=== PATIENT | female | born 1935 | race Caucasian/White ===

== ENCOUNTER 2018-11-07 14:37 | Inpatient (IN) ==
[2018-11-07] MEDS ORDERED: SODIUM CHLORIDE 0.9% 1000ML 1,000 ML IV ONE (14:50)
[2018-11-07] MEDS ORDERED: KETOROLAC TROMETHAMINE 15 MG/ML VIAL IV STA (14:50)
[2018-11-07] MEDS ORDERED: ONDANSETRON INJ 2 MG/ML 2 ML VIAL IV STA (14:50)
--- NOTE | 2018-11-07 15:01 | Emergency Department Note ---
Entered by Anderson Liao acting as a scribe for History of Present Illness General Chief complaint: Abdominal Pain Stated complaint: abd pain/vomit Time Seen by Provider: 11/07/18 14:45 Source: patient History of Present Illness Provider complaint: Abdominal pain Onset (ago): hour(s) 6 Location: abdomen and left Radiation: non-radiation Pain Consistency: + other (Waxing and waning) Current Pain Intensity: 10 Relieved By: + none Exacerbated By: + none Associated symptoms: + nausea/vomiting The patient is an 83 year old female who presents to the Emergency Room with complaints of waxing and waning left lower quadrant abdominal pain that started about 6 hours ago while traveling home to [place]. The patient states the pain onset was sudden and she rates it as a 10/10 at its worse. She has not taken anything for the pain. Soon after the pain began, the patient vomited 5-6 times and it was an orange color. The patient notes that she feels as though she needs to move her bowels, but she has not done so today. However, yesterday she did move her bowels and it was normal. The patient denies any changes in foods but did state she started her new prescription of Levothyroxine this morning. The patient has never had pain like this before and has no history of bowel obstructions. She does have a history of abdominal surgery, after having a procedure done for her cervical cancer. The patient also has a history of diabetes for which she takes 16 units of insulin and Metformin daily. Home Medications Home Medications Medication Instructions Recorded Confirmed Type ergocalciferol (vitamin D2) 50,000 unit PO WK 11/07/18 11/07/18 History insulin glargine [Lantus Solostar 12 unit SUBCUT HS 11/07/18 11/07/18 History U-100 Insulin] levothyroxine 112 mcg PO QAM 11/07/18 11/07/18 History losartan [Cozaar] 50 mg PO QAM 11/07/18 11/07/18 History metformin [Glucophage] 1,000 mg PO BID 11/07/18 11/07/18 History Allergies Allergy/AdvReac Type Severity Reaction Status Date / Time Penicillins Allergy Severe SWELLING Verified 11/07/18 15:16 Past Med/Surg History Medical History Cervical cancer Diabetes Family History Other Family history non-contributory Social History Feels Safe at Home: Yes Smoking Status: Never smoker Review of Systems See HPI for pertinent positives & negatives. and A total of 10 systems reviewed and were otherwise negative Physical Exam Vital Signs Vital Signs - 24 hr 11/07/18 14:35 11/07/18 14:41 11/07/18 15:10 Temperature 36.3 C L Temperature Source Oral Sepsis Recent Fever Within 48 Hours No Sepsis Action Taken by Nursing No Action Required Pulse Rate 88 80 81 Pulse Rate [Finger] Pulse Rate from SpO2 Sensor Respiratory Rate 20 19 15 Blood Pressure 173/94 H 173/94 H Blood Pressure [Left Arm] Blood Pressure Mean 120 120 Blood Pressure Mean [Left Arm] Pulse Oximetry 97 Oxygen Delivery Method Room Air Nasal Cannula Nasal Cannula Oxygen Flow Rate 3 3 11/07/18 15:20 11/07/18 15:30 11/07/18 15:31 Temperature Temperature Source Sepsis Recent Fever Within 48 Hours Sepsis Action Taken by Nursing Pulse Rate 82 78 81 Pulse Rate [Finger] 78 Pulse Rate from SpO2 Sensor 79 81 Respiratory Rate 13 20 16 Blood Pressure 166/86 H Blood Pressure [Left Arm] 166/86 H Blood Pressure Mean 112 Blood Pressure Mean [Left Arm] 112 Pulse Oximetry 94 Oxygen Delivery Method Nasal Cannula Nasal Cannula Nasal Cannula Oxygen Flow Rate 3 3 3 11/07/18 15:35 11/07/18 15:36 11/07/18 15:40 Temperature Temperature Source Sepsis Recent Fever Within 48 Hours Sepsis Action Taken by Nursing Pulse Rate 83 Pulse Rate [Finger] Pulse Rate from SpO2 Sensor 83 Respiratory Rate 18 Blood Pressure Blood Pressure [Left Arm] Blood Pressure Mean Blood Pressure Mean [Left Arm] Pulse Oximetry 87 L 93 94 Oxygen Delivery Method Room Air Nasal Cannula Nasal Cannula Oxygen Flow Rate 3 3 11/07/18 15:50 11/07/18 16:00 11/07/18 16:01 Temperature Temperature Source Sepsis Recent Fever Within 48 Hours Sepsis Action Taken by Nursing Pulse Rate 83 76 81 Pulse Rate [Finger] Pulse Rate from SpO2 Sensor 86 77 80 Respiratory Rate 15 16 18 Blood Pressure 148/69 H Blood Pressure [Left Arm] Blood Pressure Mean 95 Blood Pressure Mean [Left Arm] Pulse Oximetry 96 97 98 Oxygen Delivery Method Nasal Cannula Nasal Cannula Nasal Cannula Oxygen Flow Rate 3 3 3 11/07/18 16:10 11/07/18 16:30 11/07/18 16:40 Temperature Temperature Source Sepsis Recent Fever Within 48 Hours Sepsis Action Taken by Nursing Pulse Rate 81 132 H 130 H Pulse Rate [Finger] Pulse Rate from SpO2 Sensor 80 132 H 130 H Respiratory Rate 16 22 16 Blood Pressure 176/97 H Blood Pressure [Left Arm] Blood Pressure Mean 123 Blood Pressure Mean [Left Arm] Pulse Oximetry 97 96 95 Oxygen Delivery Method Nasal Cannula Nasal Cannula Oxygen Flow Rate 3 3 11/07/18 16:50 11/07/18 17:00 11/07/18 17:01 Temperature Temperature Source Sepsis Recent Fever Within 48 Hours Sepsis Action Taken by Nursing Pulse Rate 133 H 134 H 128 H Pulse Rate [Finger] Pulse Rate from SpO2 Sensor 130 H 128 H 128 H Respiratory Rate 17 13 15 Blood Pressure 154/79 H Blood Pressure [Left Arm] Blood Pressure Mean 104 Blood Pressure Mean [Left Arm] Pulse Oximetry 96 97 Oxygen Delivery Method Oxygen Flow Rate 11/07/18 17:02 11/07/18 17:10 11/07/18 17:20 Temperature Temperature Source Sepsis Recent Fever Within 48 Hours Sepsis Action Taken by Nursing Pulse Rate 128 H 126 H 125 H Pulse Rate [Finger] Pulse Rate from SpO2 Sensor 128 H 127 H 125 H Respiratory Rate 16 14 16 Blood Pressure Blood Pressure [Left Arm] Blood Pressure Mean Blood Pressure Mean [Left Arm] Pulse Oximetry 96 96 97 Oxygen Delivery Method Nasal Cannula Nasal Cannula Nasal Cannula Oxygen Flow Rate 3 3 3 11/07/18 17:29 11/07/18 17:30 11/07/18 17:31 Temperature Temperature Source Sepsis Recent Fever Within 48 Hours Sepsis Action Taken by Nursing Pulse Rate 125 H 124 H 122 H Pulse Rate [Finger] Pulse Rate from SpO2 Sensor 124 H 122 H Respiratory Rate 15 14 Blood Pressure 154/79 H 151/84 H Blood Pressure [Left Arm] Blood Pressure Mean 106 Blood Pressure Mean [Left Arm] Pulse Oximetry 96 Oxygen Delivery Method Nasal Cannula Nasal Cannula Oxygen Flow Rate 3 3 11/07/18 17:33 11/07/18 17:40 11/07/18 17:50 Temperature Temperature Source Sepsis Recent Fever Within 48 Hours Sepsis Action Taken by Nursing Pulse Rate 118 H 74 Pulse Rate [Finger] 120 H Pulse Rate from SpO2 Sensor 118 H 75 Respiratory Rate 14 18 15 Blood Pressure Blood Pressure [Left Arm] 151/84 H Blood Pressure Mean Blood Pressure Mean [Left Arm] 106 Pulse Oximetry 96 95 95 Oxygen Delivery Method Nasal Cannula Nasal Cannula Nasal Cannula Oxygen Flow Rate 3 3 3 11/07/18 18:00 11/07/18 18:01 11/07/18 18:10 Temperature Temperature Source Sepsis Recent Fever Within 48 Hours Sepsis Action Taken by Nursing Pulse Rate 73 77 74 Pulse Rate [Finger] 80 Pulse Rate from SpO2 Sensor 74 76 74 Respiratory Rate 16 17 15 Blood Pressure 135/70 Blood Pressure [Left Arm] 135/70 Blood Pressure Mean 91 Blood Pressure Mean [Left Arm] 91 Pulse Oximetry 97 96 96 Oxygen Delivery Method Nasal Cannula Nasal Cannula Nasal Cannula Oxygen Flow Rate 3 3 3 11/07/18 18:20 11/07/18 18:30 11/07/18 18:31 Temperature Temperature Source Sepsis Recent Fever Within 48 Hours Sepsis Action Taken by Nursing Pulse Rate 76 73 73 Pulse Rate [Finger] Pulse Rate from SpO2 Sensor 76 73 74 Respiratory Rate 13 20 17 Blood Pressure 131/81 Blood Pressure [Left Arm] Blood Pressure Mean 97 Blood Pressure Mean [Left Arm] Pulse Oximetry 96 96 Oxygen Delivery Method Nasal Cannula Nasal Cannula Nasal Cannula Oxygen Flow Rate 3 3 3 11/07/18 18:40 11/07/18 18:50 11/07/18 19:28 Temperature Temperature Source Sepsis Recent Fever Within 48 Hours Sepsis Action Taken by Nursing Pulse Rate 72 79 71 Pulse Rate [Finger] Pulse Rate from SpO2 Sensor 72 80 Respiratory Rate 19 13 15 Blood Pressure 142/75 H Blood Pressure [Left Arm] Blood Pressure Mean Blood Pressure Mean [Left Arm] Pulse Oximetry 97 98 97 Oxygen Delivery Method Nasal Cannula Nasal Cannula Nasal Cannula Oxygen Flow Rate 3 3 3 GENERAL: Patient is in no acute distress. HEENT: No acute trauma, normocephalic atraumatic, mucous membranes moist, no nasal congestion, no scleral icterus. NECK: No stridor, no adenopathy, no meningismus, trachea is midline. LUNGS: Clear to auscultation bilaterally, no wheeze, no rhonchi, breath sounds e qual. HEART: Without murmurs gallops or rubs, regular rate and rhythm. ABDOMEN: Soft, moderately tender in the LLQ and left mid abdomen, bowel sounds positive, no hernias, no peritonitis. EXTREMITIES: No cyanosis or edema, full range of motion of all the joints without pain or difficulty, no signs for acute trauma. NEUROLOGIC: Oriented x 3, no acute motor or sensory deficits, no focal weakness. SKIN: No rash, no jaundice, no diaphoresis. Course 1447: The patient was evaluated in room B07, and a complete history and physical examination were performed. 1723: I reevaluated the patient and she is resting in bed. I also updated her on results. 1800: I updated the patient on results and we discussed the treatment plan. She agreed to stay. 1805: I spoke to Dr. Mellisa Brewer [facility] Hospitalist about the patient's case and he will be accepting her for further evaluation. Consultations Consultation #1: I spoke to Dr. Mellisa Brewer [facility] Hospitalist about the patient's case and he will be accepting her for further evaluation. Time: 18:05 Administered Medications Ioversol (Optiray 320 100ml) 94 ml IV ONCE PRN PRN Reason: Interaction Checking Stop: 11/11/18 16:18 Last Admin: 11/07/18 16:20 Dose: 94 ml Documented by: [id number] Morphine Sulfate (Morphine Sulfate) 2 mg IV Q15M PRN PRN Reason: Pain Stop: 11/21/18 14:49 Last Admin: 11/07/18 16:33 Dose: 2 mg Documented by: [id number] Admin: 11/07/18 15:25 Dose: 2 mg Documented by: [id number] Discontinued Medications Sodium Chloride (Nss 1000ml) 1,000 mls @ 999 mls/hr IV .Q1H1M ONE Stop: 11/07/18 15:50 Last Infusion: 11/07/18 16:45 Dose: 0 mls/hr Documented by: [id number] Admin: 11/07/18 15:26 Dose: 999 mls/hr Documented by: [id number] Magnesium Sulfate/Dextrose (Magnesium Sulfate / D5w) 1 gm in 100 mls @ 100 mls/hr IV Q1H ROHIT Stop: 11/07/18 17:59 Last Infusion: 11/07/18 17:33 Dose: 0 mls/hr Documented by: [id number] Admin: 11/07/18 17:33 Dose: 100 mls/hr Documented by: [id number] Infusion: 11/07/18 17:29 Dose: 100 mls/hr Documented by: [id number] Admin: 11/07/18 16:29 Dose: 100 mls/hr Documented by: [id number] Ketorolac Tromethamine (Toradol) 15 mg IV NOW STA Stop: 11/07/18 14:51 Last Admin: 11/07/18 15:26 Dose: 15 mg Documented by: [id number] Metoprolol Tartrate (Lopressor) 5 mg IV NOW STA Stop: 11/07/18 17:23 Last Admin: 11/07/18 17:29 Dose: 5 mg Documented by: [id number] Ondansetron HCl (Zofran) 4 mg IV NOW STA Stop: 11/07/18 14:51 Last Admin: 11/07/18 15:26 Dose: 4 mg Documented by: [id number] Medical Decision Making Differential Diagnosis Differential Diagnosis includes: Bowel obstruction, bowel perfusion, bowel ischemia, hernia, diverticulitis, colitis, pancreatitis, appendicitis, UTI, electrolyte abnormality, and dehydration, amongst others. Medical Records Attestation: I reviewed the patient's medical records. Home Medications Current Medication List: was personally reviewed by me Laboratory Data Attestation: I reviewed the patient's lab results. Result diagrams: 11/07/18 15:11 11/07/18 15:11 Lab Results 11/07/18 11/07/18 11/07/18 Range/Units 14:50 15:11 15:11 WBC 10.82 H (4.8-10.8) K/uL RBC 4.67 (4.2-5.4) M/uL Hgb 13.5 (12.0-16.0) g/dL Hct 39.2 (37-47) % MCV 83.9 (80-100) fL MCH 28.9 (25-34) pg MCHC 34.4 (32-36) g/dL RDW Std Deviation 39.0 (36.4-46.3) fL RDW Coeff of Jennifer 12.9 (11.5-14.5) % Plt Count 227 (130-400) K/uL MPV 9.5 (7.4-10.4) fL Immature Gran % (Auto) 0.1 % Neut % (Auto) 82.5 % Lymph % (Auto) 14.6 % Luna % (Auto) 2.4 % Eos % (Auto) 0.2 % Baso % (Auto) 0.2 % Immature Gran # (Auto) 0.01 (0.00-0.02) K/uL Neut # (Auto) 8.93 H (1.4-6.5) K/uL Lymph # (Auto) 1.58 (1.2-3.4) K/uL Luna # (Auto) 0.26 (0.11-0.59) K/uL Eos # (Auto) 0.02 (0-0.5) K/uL Baso # (Auto) 0.02 (0-0.2) K/uL Sodium 139 (136-145) mmol/L Potassium 4.5 (3.5-5.1) mmol/L Chloride 105 (98-107) mmol/L Carbon Dioxide 27 (21-32) mmol/L Anion Gap 7.0 (3-11) BUN 18 (7-18) mg/dl Creatinine 1.38 H (0.6-1.2) mg/dl Est Cr Clr Drug Dosing Not Reportable Est GFR ( Amer) 40.9 Est GFR (Non-Af Amer) 35.3 BUN/Creatinine Ratio 12.8 (10-20) Glucose 169 H (70-99) mg/dl Lactate (0.4-2.0) mmol/L Calcium 9.2 (8.5-10.1) mg/dl Magnesium 1.1 L (1.8-2.4) mg/dl Total Bilirubin 0.7 (0.2-1) mg/dl AST 15 (15-37) U/L ALT 15 (12-78) U/L Alkaline Phosphatase 85 (45-117) U/L Total Protein 7.7 (6.4-8.2) gm/dl Albumin 3.9 (3.4-5.0) gm/dl Globulin 3.8 (2.5-4.0) gm/dl Albumin/Globulin Ratio 1.0 (0.9-2) Lipase 83 (73-393) U/L Urine Color Yellow Urine Appearance Clear (Clear) Urine pH 5.0 (4.5-7.5) Ur Specific [place] 1.026 (1.000-1.030) Urine Protein 3+ H (Negative) Urine Glucose (UA) Negative (Negative) Urine Ketones 2+ H (Negative) Urine Blood 2+ H (Negative) Urine Nitrite Negative (Negative) Urine Bilirubin Negative (Negative) Urine Urobilinogen Negative (Negative) Ur Leukocyte Esterase Negative (Negative) Urine WBC (Auto) 5-10 H (0-5) /hpf Urine RBC (Auto) 10-30 H (0-4) /hpf U Hyaline Cast (Auto) 1-5 (0-5) /lpf U Epithel Cells (Auto) >30 H (0-5) /lpf Urine Bacteria (Auto) 1+ H (Negative) Ur Renal Epithelial Cell 0-5 (0-5) /lpf 11/07/18 Range/Units 15:11 WBC (4.8-10.8) K/uL RBC (4.2-5.4) M/uL Hgb (12.0-16.0) g/dL Hct (37-47) % MCV (80-100) fL MCH (25-34) pg MCHC (32-36) g/dL RDW Std Deviation (36.4-46.3) fL RDW Coeff of Jennifer (11.5-14.5) % Plt Count (130-400) K/uL MPV (7.4-10.4) fL Immature Gran % (Auto) % Neut % (Auto) % Lymph % (Auto) % Luna % (Auto) % Eos % (Auto) % Baso % (Auto) % Immature Gran # (Auto) (0.00-0.02) K/uL Neut # (Auto) (1.4-6.5) K/uL Lymph # (Auto) (1.2-3.4) K/uL Luna # (Auto) (0.11-0.59) K/uL Eos # (Auto) (0-0.5) K/uL Baso # (Auto) (0-0.2) K/uL Sodium (136-145) mmol/L Potassium (3.5-5.1) mmol/L Chloride (98-107) mmol/L Carbon Dioxide (21-32) mmol/L Anion Gap (3-11) BUN (7-18) mg/dl Creatinine (0.6-1.2) mg/dl Est Cr Clr Drug Dosing Est GFR ( Amer) Est GFR (Non-Af Amer) BUN/Creatinine Ratio (10-20) Glucose (70-99) mg/dl Lactate 3.1 H* (0.4-2.0) mmol/L Calcium (8.5-10.1) mg/dl Magnesium (1.8-2.4) mg/dl Total Bilirubin (0.2-1) mg/dl AST (15-37) U/L ALT (12-78) U/L Alkaline Phosphatase (45-117) U/L Total Protein (6.4-8.2) gm/dl Albumin (3.4-5.0) gm/dl Globulin (2.5-4.0) gm/dl Albumin/Globulin Ratio (0.9-2) Lipase (73-393) U/L Urine Color Urine Appearance (Clear) Urine pH (4.5-7.5) Ur Specific [place] (1.000-1.030) Urine Protein (Negative) Urine Glucose (UA) (Negative) Urine Ketones (Negative) Urine Blood (Negative) Urine Nitrite (Negative) Urine Bilirubin (Negative) Urine Urobilinogen (Negative) Ur Leukocyte Esterase (Negative) Urine WBC (Auto) (0-5) /hpf Urine RBC (Auto) (0-4) /hpf U Hyaline Cast (Auto) (0-5) /lpf U Epithel Cells (Auto) (0-5) /lpf Urine Bacteria (Auto) (Negative) Ur Renal Epithelial Cell (0-5) /lpf Imaging Data Radiologist's Impression: Radiology results as stated below per my review and the radiologist's interpretation: XR chest 1V portable CLINICAL HISTORY: Left-sided abdominal pain. Possible free air. COMPARISON STUDY: No previous studies for comparison. FINDINGS: Linear left basilar opacity suggests atelectasis or scarring. There is no evidence for pneumonia or pulmonary edema. Cardiac size is normal. Mediastinal contours are normal. There is no lucency under the hemidiaphragms to suggest pneumoperitoneum. IMPRESSION: 1. No lucency under the hemidiaphragms to suggest pneumoperitoneum on chest radiograph. 2. Linear left basilar opacity suggestive of atelectasis. Electronically signed by: Luis Ku M.D. 11/07/2018 3:[address] OF THE ABDOMEN AND PELVIS WITH CONTRAST CLINICAL HISTORY: Left lower quadrant abdominal pain and vomiting. COMPARISON STUDY: None. TECHNIQUE: Following IV administration of 94 mL of Optiray-320, axial images of the abdomen and pelvis were obtained from the lung bases to the proximal femurs. Images were reviewed in the axial, sagittal, and coronal planes. IV contrast was administered without complication. Automated exposure control was utilized for the study. A dose lowering technique was utilized adhering to the principles of ALARA. CT DOSE: 644.98 mGy.cm FINDINGS: A 4 mm distal left ureteral calculus just proximal to the ureterovesical junction results in mild left hydroureteronephrosis. There is mild left perinephric infiltration. There is moderate left renal atrophy. A cyst within the upper pole of the left kidney is noted. There may be a punctate calculus within the upper pole of the right kidney. There are no right ureteral clip within a gallstone within the gallbladder. The gallbladder is mildly distended. There is no pericholecystic infiltration. A lateral segment hepatic cyst is noted. The spleen and adrenal glands are unremarkable. There is marked pancreatic glandular atrophy. Multiple cystic lesions within the pancreas are noted, including a 2.4 cm lesion within the uncinate process. There is no biliary or pancreatic ductal dilatation. The appendix is normal. There is no evidence for a bowel obstruction. Colonic diverticulosis is noted without evidence for acute diverticulitis. There are no suspicious osseous lesions. IMPRESSION: 1. 4 mm distal left ureteral calculus which results in mild left hydroureteronephrosis. 2. Cholelithiasis and mild gallbladder distention. No pericholecystic infiltration to strongly suggest acute cholecystitis. 3. 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 Electronically signed by: Luis Ku M.D. 11/07/2018 5:30 PM ECG Data Attestation: I personally reviewed and interpreted this ECG as follows: Indication: abdominal pain Rate (beats per minute): 83 Rhythm: normal sinus Findings: no PVC and no ST elevation Additional Comments: REPEAT 1: Sinus tachycardia vs atrial tachycardia, rate of 127, non specific ST changes, no ST elevation, no PVC REPEAT 2: Normal sinus rhythm, rate of 73, no ST elevation, no PVC Blood Pressure Blood Pressure Findings: Elevated blood pressure Blood Pressure Disposition: further management by hospitalist [facility] Narrative There is a very mild leukocytosis, this could be consistent with infection or just her pain. No worrisome anemia. No kidney failure. Lactic acid level was elevated at 3.1, this could be consistent with dehydration or possibly infection , I favor dehydration. Magnesium was low at 1.1. No elevation to the LFTs, no evidence for pancreatitis. Urinalysis showed contamination, no obvious infection. EKG showed a sinus rhythm, no acute ischemia. A repeat EKG was done when the patient developed tachycardia, this showed some nonspecific ST change and a possible sinus tachycardia versus a slower 2-1 atrial flutter. A third EKG done sometime later showed return of a normal sinus rhythm. Abdominal and pelvis CT shows a left distal ureteral stone with some hydronephrosis. There is a gallstone noted also but no evidence for acute c holecystitis. No evidence for bowel obstruction, no evidence for abscess. The patient received IV saline, she was given IV morphine for pain, IV Toradol for pain. She received IV magnesium for the low magnesium value. She received 1 L of IV saline. She required a 5 mg dose of IV Lopressor for the tachycardia. The patient as noted above did develop a bout of tachycardia, the tachycardia started when the IV magnesium was infusing. The magnesium was held for a short time and with the addition of 5 mg of IV Lopressor, the tachycardia resolved and the rhythm became a normal sinus. Patient is from out of town, she presents vomiting, she has quite a bit of discomfort from this left ureteral stone. Had a bout of tachycardia/dysrhythmia that required Lopressor IV. I do think a hospital stay is warranted. I spoke to the patient and family service caseworker. The on-call hospitalist was consulted. Impression & Plan Renal colic, Hypomagnesemia, Vomiting, Tachycardia Discharge Plan Visit Data Chief Complaint: Abdominal Pain Stated Complaint: abd pain/vomit ED Provider: Josue Garcia Discharge Problem: Renal colic, Hypomagnesemia, Vomiting, Tachycardia Patient Disposition: Being Evaluated by Hospitalist Discharge Instructions Interventions: ED Discharge Assessment Last Done: 11/07/18 19:28 Forms Stand Alone Forms: [facility] Prescriptions Prescriptions: No Action losartan [Cozaar] 50 mg tablet 50 mg PO QAM RF: 0 metformin [Glucophage] 1,000 mg tablet 1,000 mg PO BID RF: 0 ergocalciferol (vitamin D2) 50,000 unit capsule 50,000 unit PO WK RF: 0 levothyroxine 112 mcg tablet 112 mcg PO QAM RF: 0 Lantus Solostar U-100 Insulin 100 unit/mL (3 mL) insulin pen 12 unit subcut HS RF: 0 Referrals Referrals: PCP,NO [Primary Care Provider] - Discharge Problem: Vomiting Qualifiers: Vomiting type: unspecified Vomiting Intractability: non-intractable Nausea presence: with nausea Qualified Code(s): R11.2 - Nausea with vomiting, unspecified The scribe's documentation has been prepared under my direction and personally reviewed by me in its entirety. I confirm that the note above accurately reflects all work, treatment, procedures, and medical decision making performed by me.
[2018-11-07 15:14] LABS: Appearance Urine Clear (Clear); Bacteria Urine Automated 1+ (Negative); Bilirubin Urine Negative (Negative); Blood Urine 2+ (Negative); Color Urine Yellow; Epithelial Cell Urine Auto >30 /lpf (0-5); Glucose Urine UA Negative (Negative); Ketones Urine 2+ (Negative); Leukocyte Esterase Urine Negative (Negative); Nitrite Urine Negative (Negative); Protein Urine 3+ (Negative); Specific Gravity Urine 1.026 (1.000-1.030); Urobilinogen Urine Negative (Negative)
--- NOTE | 2018-11-07 15:17 | XRay Report ---
XR chest 1V portable CLINICAL HISTORY: Left-sided abdominal pain. Possible free air. COMPARISON STUDY: No previous studies for comparison. FINDINGS: Linear left basilar opacity suggests atelectasis or scarring. There is no evidence for pneu monia or pulmonary edema. Cardiac size is normal. Mediastinal contours are normal. There is no lucenc y under the hemidiaphragms to suggest pneumoperitoneum. IMPRESSION: 1. No lucency under the hemidiaphragms to suggest pneumoperitoneum on chest radiograph. 2. Linear left basilar opacity suggestive of atelectasis. Electronically signed by: Luis Ku M.D. 11/07/2018 3:15 PM
[2018-11-07 15:24] LABS: Basophils # (auto) 0.02 K/uL (0-0.2); Basophils % (auto) 0.2 %; Eosinophils # (auto) 0.02 K/uL (0-0.5); Eosinophils % (auto) 0.2 %; Hematocrit (blood only) 39.2 % (37-47); Hemoglobin 13.5 g/dL (12.0-16.0); Immature Granulocytes # (auto) 0.01 K/uL (0.00-0.02); Immature Granulocytes % (auto) 0.1 %; Lymphocytes # (auto) 1.58 K/uL (1.2-3.4); Lymphocytes % (auto) 14.6 %; Mean Corpuscular Hgb Conc 34.4 g/dL (32-36); Mean Corpuscular Volume 83.9 fL (80-100); Mean Platelet Volume 9.5 fL (7.4-10.4); Monocytes # (auto) 0.26 K/uL (0.11-0.59); Monocytes % (auto) 2.4 %; Neutrophils # (auto) 8.93 K/uL (1.4-6.5); Neutrophils % (auto) 82.5 %; Platelet Count 227 K/uL (130-400); RDW Coefficient of Variation 12.9 % (11.5-14.5); Red Blood Count 4.67 M/uL (4.2-5.4); White Blood Count 10.82 K/uL (4.8-10.8)
[2018-11-07] MEDS: MoRPHine SULFATE 4 MG/ML 1 ML CARP\\VIAL IV PRN ×2 (15:25→16:33)
[2018-11-07 15:42] LABS: Alanine Aminotransferase 15 U/L (12-78); Albumin Level 3.9 gm/dl (3.4-5.0); Aspartate Aminotransferase 15 U/L (15-37); BUN Creatinine Ratio 12.8 (10-20); Blood Urea Nitrogen 18 mg/dl (7-18); Calcium 9.2 mg/dl (8.5-10.1); Carbon Dioxide 27 mmol/L (21-32); Chloride 105 mmol/L (98-107); Est GFR (African American) 40.9; Est GFR (Non-African American) 35.3; Glucose 169 mg/dl (70-99); Magnesium 1.1 mg/dl (1.8-2.4); Potassium 4.5 mmol/L (3.5-5.1); Sodium 139 mmol/L (136-145)
[2018-11-07 15:44] LABS: Alkaline Phosphatase 85 U/L (45-117); Bilirubin,Total 0.7 mg/dl (0.2-1); Globulin 3.8 gm/dl (2.5-4.0); Total Protein 7.7 gm/dl (6.4-8.2)
[2018-11-07 15:58] LABS: Renal Epithelial Cells Urine 0-5 /lpf (0-5)
[2018-11-07] MEDS ORDERED: IOVERSOL 100ml IV PRN (16:19)
[2018-11-07] MEDS: MAGNESIUM SULFATE / D5W 1 GM/100 ML BAG IV SCH ×2 (16:29→17:33)
[2018-11-07] MEDS ORDERED: METOPROLOL TARTRATE 1 MG/ML VIAL IV STA (17:22)
--- NOTE | 2018-11-07 17:31 | CT Scan Report ---
CT OF THE ABDOMEN AND PELVIS WITH CONTRAST CLINICAL HISTORY: Left lower quadrant abdominal pain and vomiting. COMPARISON STUDY: None. TECHNIQUE: Following IV administration of 94 mL of Optiray-320, axial images of the abdomen and pelvi s were obtained from the lung bases to the proximal femurs. Images were reviewed in the axial, sagitt al, and coronal planes. IV contrast was administered without complication. Automated exposure contro l was utilized for the study. A dose lowering technique was utilized adhering to the principles of A AMY. CT DOSE: 644.98 mGy.cm FINDINGS: A 4 mm distal left ureteral calculus just proximal to the ureterovesical junction results i n mild left hydroureteronephrosis. There is mild left perinephric infiltration. There is moderate lef t renal atrophy. A cyst within the upper pole of the left kidney is noted. There may be a punctate ca lculus within the upper pole of the right kidney. There are no right ureteral clip within a gallstone within the gallbladder. The gallbladder is mildly distended. There is no pericholecystic infiltratio n. A lateral segment hepatic cyst is noted. The spleen and adrenal glands are unremarkable. There is marked pancreatic glandular atrophy. Multiple cystic lesions within the pancreas are noted, including a 2.4 cm lesion within the uncinate process. There is no biliary or pancreatic ductal dilatation. Th e appendix is normal. There is no evidence for a bowel obstruction. Colonic diverticulosis is noted w ithout evidence for acute diverticulitis. There are no suspicious osseous lesions. IMPRESSION: 1. 4 mm distal left ureteral calculus which results in mild left hydroureteronephrosis. 2. Cholelithiasis and mild gallbladder distention. No pericholecystic infiltration to strongly sugges t acute cholecystitis. 3. 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 Electronically signed by: Luis Ku M.D. 11/07/2018 5:30 PM
--- NOTE | 2018-11-07 18:42 | History & Physical Report ---
Date of Service November 07, 2018 Assessment & Plan (1) Kidney stone: Admit to telemetry due to tachycardia in ED CT showed 4 mm left ureter calculus with mild hydronephrosis Lactic acid was 3.0, likely due to dehydration as she does not appear to be septic - IVF, morphine 2 mg IV q4h prn UC pending Flomax Consult urology (2) Hypomagnesemia: 1.1 on admission, given 1 in ED, will give another and recheck level in am. May have contributed to SVT in ED. Patient reports she has not had much of an appetite (3) Tachycardia: Brief PAT with heart rate 120s -130s which returned to normal EKG with metoprolol IV. Troponins x 3 telemetry monitoring (4) IPMN (intraductal papillary mucinous neoplasm): Reviewed finding with patient - follow up outpatient (5) Cholelithiasis: Seen on CT No RUQ pain, LFTs wnl May want to pursue if nausea does not resolve with nephrolithiasis removal LFTs am (6) DVT prophylaxis: SCDs History of Present Illness Ms. Coe is visiting from [place] to bring her grandson to a [employer]. She became nauseas with vomiting around 0830 this morning. She also had pain in her left lower quadrant. She denies any diarrhea or dysuria. She also developed SVT briefly in the ED for which she was given IV metoprolol and has not experienced since. She has not had any chest pain or other cardiac symptoms. 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 hx: diabetes Primary Care Provider: NO PCP Allergies Allergy/AdvReac Type Severity Reaction Status Date / Time Penicillins Allergy Severe SWELLING Verified 11/07/18 15:16 Home Medications Home Medications Medication Instructions Recorded Confirmed Type ergocalciferol (vitamin D2) 50,000 unit PO WK 11/07/18 11/07/18 History insulin glargine [Lantus Solostar 12 unit SUBCUT HS 11/07/18 11/07/18 History U-100 Insulin] levothyroxine 112 mcg PO QAM 11/07/18 11/07/18 History losartan [Cozaar] 50 mg PO QAM 11/07/18 11/07/18 History metformin [Glucophage] 1,000 mg PO BID 11/07/18 11/07/18 History Past Med/Surg History Medical History Cervical cancer Diabetes Family History Other Family history non-contributory Social History Feels Safe at Home: Yes Smoking Status: Never smoker Review of Systems Review of Systems: All systems reviewed & are unremarkable except as noted in HPI & below Physical Exam Physical Exam: General: no distress Eyes: normal inspection, PERLL Respiratory: chest non tender, clear to auscultation, normal breath sounds, no respiratory distress, no accessory muscle use Cardiac: regular rate and rhythm, no rub or gallop, no murmur, no edema, no jvd GI/: active bowel sounds, no abd pain or tenderness, soft, non distended Extremities: normal range of motion, normal strength, non tender Neuro:oriented x 3, moves all extremities Psych: alert, normal mood and affect Skin: normal color, dry Results & Data Vital Signs (Past 12 Hours) Vital Signs Temp Pulse Pulse Resp BP BP Pulse Ox 11/07/18 18:00 80 22 135/70 97 11/07/18 17:33 120 H 14 151/84 H 96 11/07/18 17:29 125 H 154/79 H 11/07/18 17:01 128 H 15 154/79 H 97 11/07/18 17:00 134 H 13 11/07/18 16:50 133 H 17 96 11/07/18 16:40 130 H 16 95 11/07/18 16:30 132 H 22 176/97 H 96 11/07/18 16:10 81 16 97 11/07/18 16:01 81 18 148/69 H 98 11/07/18 16:00 76 16 97 11/07/18 15:50 83 15 96 11/07/18 15:40 83 18 94 11/07/18 15:36 93 11/07/18 15:35 87 L 11/07/18 15:31 81 16 166/86 H 11/07/18 15:30 78 78 20 166/86 H 94 11/07/18 15:20 82 13 11/07/18 15:10 81 15 11/07/18 14:41 80 19 173/94 H 11/07/18 14:35 36.3 C L 88 20 173/94 H 97 Supervising Physician Co-Signing Physician Notes The patient was seen and examined by me. I agree with the assessment and plan. She has a 4 mm distal left ureteral stone which probably will pass. She had a short run of PAT in the ED which was probably due to abdominal pain and low magnesium levels. She was given 1 dose of intravenous metoprolol and it resolved. Follow-up EKG is unremarkable. Serial troponins will be obtained. She has no previous cardiac history and denies any chest pain or shortness of breath. Magnesium replacement underway. Lactic acid is elevated but she is not septic. Lungs are clear. Heart rhythm is regular at this time. Abdomen benign, soft with active bowel sounds and no focal tenderness. Extremities exhibit no cyanosis, clubbing or edema. Neurologically grossly intact. PG Care Time/CCT Total # of Minutes Spent Total Time Spent with Patient: Total time spent is greater than 50% in coordination of care (as documented) at patient's floor/unit and/or counseling patient:
[2018-11-07] MEDS ORDERED: POLYETHYLENE (MIRALAX) 17 GM PACK PO PRN (19:58)
[2018-11-07] MEDS ORDERED: ACETAMINOPHEN 325 MG TAB PO PRN (19:58)
[2018-11-07] MEDS ORDERED: ONDANSETRON INJ 2 MG/ML 2 ML VIAL IV PRN (19:58)
[2018-11-07] MEDS ORDERED: MoRPHine SULFATE 2 MG/ML CARP IV PRN (19:58)
[2018-11-07] MEDS ORDERED: METOPROLOL TARTRATE 1 MG/ML VIAL IV PRN (19:58)
[2018-11-07 20:26] LABS: Troponin I < 0.015 ng/ml (0-0.045)
[2018-11-07] MEDS: SODIUM CHLORIDE 0.9% 1000ML 1,000 ML IV SCH (20:28)
[2018-11-07] MEDS ORDERED: MAGNESIUM SULFATE / D5W 1 GM/100 ML BAG IV ONE (20:30)
[2018-11-07] MEDS ORDERED: INSULIN ASPART 100 UNITS/ML 3 ML PEN SC SCH (21:00)
[2018-11-07] MEDS ORDERED: TAMSULOSIN HCL 0.4 MG CAP PO SCH (21:00)
[2018-11-07] MEDS: INSULIN GLARGINE SOLOSTAR 100 UNITS/ML 3 ML PEN SQ SCH (21:32)
[2018-11-08 02:02] LABS: Hematocrit (blood only) 34.5 % (37-47); Hemoglobin 11.7 g/dL (12.0-16.0); Mean Corpuscular Hgb Conc 33.9 g/dL (32-36); Mean Corpuscular Volume 85.8 fL (80-100); Mean Platelet Volume 9.2 fL (7.4-10.4); Platelet Count 204 K/uL (130-400); RDW Standard Deviation 40.5 fL (36.4-46.3); Red Blood Count 4.02 M/uL (4.2-5.4)
[2018-11-08 02:24] LABS: BUN Creatinine Ratio 12.8 (10-20); Bilirubin Direct 0.2 mg/dl (0-0.2); Calcium 7.9 mg/dl (8.5-10.1); Creatinine Clr Calc Pharmacy 29.5 ml/min; Est GFR (African American) 36.1; Est GFR (Non-African American) 31.1; Magnesium 1.9 mg/dl (1.8-2.4); Potassium 4.3 mmol/L (3.5-5.1)
[2018-11-08 02:44] LABS: Bilirubin,Total 0.6 mg/dl (0.2-1); Total Protein 6.2 gm/dl (6.4-8.2); Troponin I 0.064 ng/ml (0-0.045)
[2018-11-08] MEDS: SODIUM CHLORIDE 0.9% 1000ML 1,000 ML IV SCH ×2 (05:57→16:55)
[2018-11-08] MEDS: INSULIN ASPART 100 UNITS/ML 3 ML PEN SC SCH ×5 (05:57→20:45)
[2018-11-08] MEDS: LEVOTHYROXINE SODIUM 112 MCG TABLET PO SCH (07:21)
[2018-11-08] MEDS ORDERED: SODIUM CHLORIDE 0.9% 1000ML 500 ML IV ONE (08:45)
[2018-11-08] MEDS ORDERED: LOSARTAN POTASSIUM 50 MG TAB PO SCH (09:00)
--- NOTE | 2018-11-08 09:05 | Urology Consultation ---
Date of Consultation November 08, 2018 Assessment & Plan (1) Kidney stone: Assessment Small left ureteral stone. Given patient's lack of symptoms currently I think she is probably passed her stone Since she has had no fevers or chills and now was not having any flank pain nausea or vomiting nothing else needs to be done at this time From a urologic point of view she is stable for discharge I would send her home on some pain medication History of Present Illness Attending Physician: Skylar Stout MD History of Present Illness 83-year-old white female who was seen in the emergency room with left abdominal pain nausea and vomiting. She had a CT scan done showing a 2.5 mm left ureterovesical junction stone. She tells me that as soon as she got to her room the pain disappeared the nausea resolved. She is had no pain or nausea since last night. She is had no fevers or chills. Allergies Allergy/AdvReac Type Severity Reaction Status Date / Time Penicillins Allergy Severe SWELLING Verified 11/07/18 15:16 aspartame AdvReac Unknown Unknown Verified 11/08/18 08:56 Home Medications Home Medications Medication Instructions Recorded Confirmed Type ergocalciferol (vitamin D2) 50,000 unit PO WK 11/07/18 11/07/18 History insulin glargine [Lantus Solostar 12 unit SUBCUT HS 11/07/18 11/07/18 History U-100 Insulin] levothyroxine 112 mcg PO QAM 11/07/18 11/07/18 History losartan [Cozaar] 50 mg PO QAM 11/07/18 11/07/18 History metformin [Glucophage] 1,000 mg PO BID 11/07/18 11/07/18 History Patient History Medical History Cervical cancer Diabetes Family History Other Family history non-contributory Social History Preferred Language: [place] Islander Communication Ability: Effective 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 Beliefs That Will Affect Care: None Current Living Situation: Alone Other Information That Helps Us Care for You: No Feels Safe at Home: Yes Safety Concerns: Feels Safe At This Time Smoking Status: Never smoker Tobacco Cessation Education Requested by Patient: No Hx Alcohol Use: No Hx Substance Use: No Physical Exam Physical Exam: Patient is a well-developed well-nourished white female in no acute distress Neurologically she is alert and oriented x3 Abdomen soft nontender Back there is no flank pain Extremities no calf pain or edema Results & Data Vital Signs (Past 12 Hours) Vital Signs Temp Pulse Resp BP Pulse Ox 11/08/18 08:05 36.7 C 64 22 88/58 L 92 11/08/18 03:10 36.8 C 66 18 102/59 L 92 11/07/18 23:46 36.4 C L 64 17 105/66 94 Diagnostic Findings I reviewed the patient's CT from last night there is a 2.5 mm left ureterovesical junction stone
--- NOTE | 2018-11-08 11:01 | Cardiology Consultation ---
Date of Consultation November 08, 2018 Assessment & Plan (1) Elevated troponin: Mildly elevated troponin likely secondary to demand ischemia. The patient was tachycardic on presentation and has left ventricle hypertrophy on her echocardiogram. She has had absolutely no cardiac symptoms. No further workup indicated at this time. (2) Tachycardia: Initial EKG noted a sinus tachycardia. The medical record explains an SVT which converted to sinus rhythm with intravenous metoprolol. Hypomagnesemia at time of presentation is noted. (3) LVH (left ventricular hypertrophy): Mild LVH on her echocardiogram performed today. (4) Mitral regurgitation: At least mild mitral regurgitation noted on her echocardiogram. History of Present Illness Attending Physician: Skylar Stout MD History of Present Illness Mrs. Coe is an 83-year-old female admitted yesterday with a left ureteral stone. She had a mildly elevated troponin, therefore, this consultation was ordered. The patient was in her usual state of health until approximately 8:00 a.m. yesterday when she began to note some left lower quadrant pain. The patient was traveling from her home in [facility] to [facility] to drop her grandson off at a wrestling camp. Her discomfort continued to intensify and by 1:00 p.m., she developed nausea and vomiting and had to lay down in the grass. She was found by police surgeon who called 911. On arrival to the emergency room, the patient was tachycardic (rhythm strips are not available for review). The medical records suggest the patient was in an SVT and received 5 mg of intravenous Lopressor and converted back to sinus rhythm. Her initial troponin was undetectable, however, follow-up value peaked at 0.064. The patient has never had a cardiac event. She has never experienced exertional chest pain or limiting dyspnea. She further denies syncope, presyncope, PND, orthopnea, palpitations, lower extremity edema, and claudication. She has never had a cardiac catheterization or stress test. Fortunately, the patient was able to passed her stone. The patient feels well and is anxious for hospital discharge. Past medical and surgical history 1. Diabetes mellitus 2. Hypothyroidism 3. Nephrolithiasis 4. Mild LVH 5. Cholelithiasis 6. Intraductal papillary mucinous neoplasm of the pancreas 7. History of cervical carcinoma-2003 8. Hysterectomy-2003 Social history Single, lives alone No tobacco or alcohol Family history No early coronary artery disease Review of systems A 10 point review of systems was negative except for that described above. Allergies Allergy/AdvReac Type Severity Reaction Status Date / Time Penicillins Allergy Severe SWELLING Verified 11/07/18 15:16 aspartame AdvReac Unknown Unknown Verified 11/08/18 08:56 Home Medications Home Medications Medication Instructions Recorded Confirmed Type ergocalciferol (vitamin D2) 50,000 unit PO WK 11/07/18 11/07/18 History insulin glargine [Lantus Solostar 12 unit SUBCUT HS 11/07/18 11/07/18 History U-100 Insulin] levothyroxine 112 mcg PO QAM 11/07/18 11/07/18 History losartan [Cozaar] 50 mg PO QAM 11/07/18 11/07/18 History metformin [Glucophage] 1,000 mg PO BID 11/07/18 11/07/18 History Patient History Medical History Cervical cancer Diabetes Family History Other Family history non-contributory Social History Preferred Language: Burkinan Communication Ability: Effective Chore Tender Required: No Beliefs That Will Affect Care: None Current Living Situation: Alone Other Information That Helps Us Care for You: No Feels Safe at Home: Yes Safety Concerns: Feels Safe At This Time Smoking Status: Never smoker Tobacco Cessation Education Requested by Patient: No Hx Alcohol Use: No Hx Substance Use: No Physical Exam Physical Exam: In general this is an obese white female in no acute distress. HEENT exam is negative. Neck is supple with full carotid upstrokes. There are no carotid bruits. Jugular venous pressure is flat at 90. There is no thyromegaly. Cardiovascular exam reveals a regular rhythm with a normal S1 and S2. No S3, S4, or murmurs are noted. Lungs are clear without rales, rhonchi, or wheezes. Abdomen is soft and nontender without bruits. Extremities reveal intact radial artery and posterior tibial pulses bilaterally. There is no peripheral edema. Results & Data Vital Signs (Past 12 Hours) Vital Signs Temp Pulse Resp BP Pulse Ox 11/08/18 08:05 36.7 C 64 22 88/58 L 92 11/08/18 03:10 36.8 C 66 18 102/59 L 92 11/07/18 23:46 36.4 C L 64 17 105/66 94 Laboratory Results CBC notes a hemoglobin of 11.7, hematocrit 34.5, white count 9.8, and platelet count of 620025. Electrolytes notice sodium of 140, potassium 4.3, chloride 109, bicarb 28, BUN 20, creatinine 1.53, glucose of 92. Initial magnesium level is 1.1, now up to 1 9. Initial troponin was less than 0.015 with follow-up values of 0.064, and 0.055. Diagnostic Findings Initial EKG noted sinus tachycardia with an anterolateral ST abnormality. Follow-up tracing notes sinus rhythm without abnormalities. Echocardiogram notes normal left ventricular systolic function and mild LVH. There is at least mild mitral and tricuspid regurgitation. Chest x-ray shows no acute disease. compliance monitor is benign.
[2018-11-08 13:27] LABS: BUN Creatinine Ratio 12.3 (10-20); Calcium 8.2 mg/dl (8.5-10.1); Creatinine Clr Calc Pharmacy 25.5 ml/min; Est GFR (African American) 30.3; Est GFR (Non-African American) 26.1
[2018-11-08] MEDS ORDERED: GLUCOSE 40% GEL 15 GM TUBE PO PRN (13:45)
[2018-11-08] MEDS ORDERED: DEXTROSE 50% 50 ML SYRINGE IV PRN (13:45)
[2018-11-08] MEDS ORDERED: GLUCOSE 10 TABS/TUBE PO PRN (13:45)
[2018-11-08] MEDS ORDERED: CARBOHYDRATES FOR HYPOGLYCEMIA PO PRN (13:45)
[2018-11-08] MEDS ORDERED: GLUCAGON FOR INJ 1 MG VIAL IM PRN (13:45)
[2018-11-08 16:27] LABS: BUN Creatinine Ratio 11.9 (10-20); Calcium 8.1 mg/dl (8.5-10.1); Creatinine Clr Calc Pharmacy 23.9 ml/min; Est GFR (African American) 27.9; Est GFR (Non-African American) 24.1; Potassium 4.3 mmol/L (3.5-5.1)
--- NOTE | 2018-11-08 16:38 | Hospitalist Progress Note ---
Date of Service November 08, 2018 Assessment & Plan (1) Kidney stone: She presented with left lower quadrant abdominal pain, nausea/vomiting CT showed 4 mm left ureteral calculus with mild hydronephrosis Lactic acid was 3.0, likely due to dehydration as she does not appear to be septic She did have a leukocytosis which is now improving, afebrile She was treated with IV fluids, 1 dose of Flomax, and morphine 2 mg IV q4h prn She no longer has any renal colic and urology saw her-thinks stone has passed and she is cleared from their standpoint for discharge -She has acute kidney injury as below but is worsening and likely hypotension secondary to Flomax -Continue IV fluids -Discontinue Flomax (2) Hypotension: Possibly secondary to Flomax -Gave IV fluid bolus today and continued normal saline at 125 an hour all day and is now with ANJANA secondary likely to ATN -Blood pressure only slightly better than this morning at 90 systolic -She is asymptomatic with this -Discontinued Flomax -Continue IV fluids -Check orthostatic vital signs (3) Elevated troponin: Troponin was negative on admission and then elevated to 0.06 and then decreased down to 0.[address] depressions and T wave inversions when she was in sinus tachycardia in the ER but did not have chest pain EKG changes resolved when the tachycardia resolved Echocardiogram with normal EF and no wall motion abnormalities, with LVH Cardiology consultation obtained-thinks that elevated troponin and EKG changes are secondary to tachycardia in the setting of LVH -Cardiology does not recommend any further cardiac testing -Continue monitoring on telemetry especially given hypotension (4) ANJANA (acute kidney injury): Creatinine was 1.3 on admission and is now rising throughout the day now up to 1.89 with BUN remaining fairly stable at 22 Likely secondary to ATN from hypotension along with some degree of post-renal obstructive ANJANA from stone which is now passed Electrolytes otherwise stable and she is not volume overloaded, is making urine- it is not being recorded as she is voiding into the toilet as per RN -Check fractional excretion of sodium -Continue normal saline at 125 mL's per hour -Follow BMP in the morning -will continue her hospital stay overnight (5) Hypomagnesemia: 1.1 on admission, was replaced and is now normal (6) Tachycardia: Brief PAT as per report with heart rate 120s -130s which returned to normal EKG with metoprolol IV. EKG only shows sinus tachycardia as above Likely secondary to hypomagnesemia and acute illness with renal colic -Now resolved (7) IPMN (intraductal papillary mucinous neoplasm): Admitting practitioner reviewed the finding with patient - follow up outpatient Has a 2.4 cm cyst in the uncinate process of the pancreas seen on imaging (8) Cholelithiasis: Seen incidentally on CT No RUQ pain, LFTs wnl Follow as an outpatient with PCP (9) LVH (left ventricular hypertrophy): Noted on echocardiogram as above (10) Mitral regurgitation: Mild as seen on echocardiogram -Follow as an outpatient (11) DVT prophylaxis: SCDs, add on SQ heparin Disposition-remain on telemetry overnight for acute kidney injury Hopeful for discharge tomorrow if renal function improved as patient has to go back to [place] on Friday Subjective Patient reports that she has not had any further left lower quadrant pain since she got to the floor last night. She denies any chest pain or shortness of breath. Denies lightheadedness or headache. She reports she is making urine. Denies leg swelling. She denies any previous problems with her heart. Telemetry with normal sinus rhythm, rates in the 60s. I discussed the case with the floor finisher helper. Review of Systems Review of Systems: All systems reviewed & are unremarkable except as noted in HPI & below Physical Exam Constitutional: WD/WN, vitals as above Eyes: PERRL, conjunctivae normal, anicteric sclerae ENMT: external ear and nose normal, oropharynx normal Neck: trachea midline, no thyromegaly Respiratory: normal respiratory effort, lungs clear to auscultation Cardiovascular: RRR, no murmur, no edema Gastrointestinal (Abdomen): normal bowel sounds, soft, nontender, no hepatosplenomegaly Musculoskeletal: Extremities: extremities normal to inspection; no cyanosis and no clubbing Skin: no rashes, warm and dry Neurologic: moves all extremities and awake; no focal motor deficits Psychiatric: A+Ox3, euthymic affect Results & Data Vital Signs (Past 12 Hours) Vital Signs Temp Pulse Pulse Resp BP Pulse Ox 11/08/18 15:39 36.7 C 75 20 94/57 L 90 11/08/18 15:02 71 11/08/18 11:18 36.7 C 70 20 101/61 96 11/08/18 08:05 36.7 C 64 22 88/58 L 92 Laboratory Results 11/08/18 11/08/18 11/08/18 Range/Units 16:15 15:53 12:38 WBC (4.8-10.8) K/uL RBC (4.2-5.4) M/uL Hgb (12.0-16.0) g/dL Hct (37-47) % MCV (80-100) fL MCH (25-34) pg MCHC (32-36) g/dL RDW Std Deviation (36.4-46.3) fL RDW Coeff of Jennifer (11.5-14.5) % Plt Count (130-400) K/uL MPV (7.4-10.4) fL Sodium 140 142 (136-145) mmol/L Potassium 4.3 4.0 (3.5-5.1) mmol/L Chloride 108 H 109 H (98-107) mmol/L Carbon Dioxide 25 25 (21-32) mmol/L Anion Gap 7.0 8.0 (3-11) BUN 22 H 22 H (7-18) mg/dl Creatinine 1.89 H 1.77 H (0.6-1.2) mg/dl Est Cr Clr Drug Dosing 23.9 25.5 ml/min Est GFR ( Amer) 27.9 30.3 Est GFR (Non-Af Amer) 24.1 26.1 BUN/Creatinine Ratio 11.9 12.3 (10-20) Glucose 128 H 154 H (70-99) mg/dl POC Glucose 127 H (70-99) Calcium 8.1 L 8.2 L (8.5-10.1) mg/dl Magnesium (1.8-2.4) mg/dl Total Bilirubin (0.2-1) mg/dl Direct Bilirubin (0-0.2) mg/dl AST (15-37) U/L ALT (12-78) U/L Alkaline Phosphatase (45-117) U/L Troponin I (0-0.045) ng/ml Total Protein (6.4-8.2) gm/dl Albumin (3.4-5.0) gm/dl 11/08/18 11/08/18 11/08/18 Range/Units 11:23 08:10 07:52 WBC (4.8-10.8) K/uL RBC (4.2-5.4) M/uL Hgb (12.0-16.0) g/dL Hct (37-47) % MCV (80-100) fL MCH (25-34) pg MCHC (32-36) g/dL RDW Std Deviation (36.4-46.3) fL RDW Coeff of Jennifer (11.5-14.5) % Plt Count (130-400) K/uL MPV (7.4-10.4) fL Sodium (136-145) mmol/L Potassium (3.5-5.1) mmol/L Chloride (98-107) mmol/L Carbon Dioxide (21-32) mmol/L Anion Gap (3-11) BUN (7-18) mg/dl Creatinine (0.6-1.2) mg/dl Est Cr Clr Drug Dosing ml/min Est GFR ( Amer) Est GFR (Non-Af Amer) BUN/Creatinine Ratio (10-20) Glucose (70-99) mg/dl POC Glucose 95 92 (70-99) Calcium (8.5-10.1) mg/dl Magnesium (1.8-2.4) mg/dl Total Bilirubin (0.2-1) mg/dl Direct Bilirubin (0-0.2) mg/dl AST (15-37) U/L ALT (12-78) U/L Alkaline Phosphatase (45-117) U/L Troponin I 0.055 H* (0-0.045) ng/ml Total Protein (6.4-8.2) gm/dl Albumin (3.4-5.0) gm/dl 11/08/18 11/08/18 11/08/18 Range/Units 05:55 01:52 01:52 WBC 9.80 (4.8-10.8) K/uL RBC 4.02 L (4.2-5.4) M/uL Hgb 11.7 L (12.0-16.0) g/dL Hct 34.5 L (37-47) % MCV 85.8 (80-100) fL MCH 29.1 (25-34) pg MCHC 33.9 (32-36) g/dL RDW Std Deviation 40.5 (36.4-46.3) fL RDW Coeff of Jennifer 13.0 (11.5-14.5) % Plt Count 204 (130-400) K/uL MPV 9.2 (7.4-10.4) fL Sodium 140 (136-145) mmol/L Potassium 4.3 (3.5-5.1) mmol/L Chloride 109 H (98-107) mmol/L Carbon Dioxide 28 (21-32) mmol/L Anion Gap 3.0 (3-11) BUN 20 H (7-18) mg/dl Creatinine 1.53 H (0.6-1.2) mg/dl Est Cr Clr Drug Dosing 29.5 ml/min Est GFR ( Amer) 36.1 Est GFR (Non-Af Amer) 31.1 BUN/Creatinine Ratio 12.8 (10-20) Glucose 92 (70-99) mg/dl POC Glucose 95 (70-99) Calcium 7.9 L (8.5-10.1) mg/dl Magnesium 1.9 (1.8-2.4) mg/dl Total Bilirubin 0.6 (0.2-1) mg/dl Direct Bilirubin 0.2 (0-0.2) mg/dl AST 14 L (15-37) U/L ALT 13 (12-78) U/L Alkaline Phosphatase 69 (45-117) U/L Troponin I 0.064 H* (0-0.045) ng/ml Total Protein 6.2 L (6.4-8.2) gm/dl Albumin 3.0 L (3.4-5.0) gm/dl 11/08/18 11/07/18 11/07/18 Range/Units 00:06 21:30 15:11 WBC (4.8-10.8) K/uL RBC (4.2-5.4) M/uL Hgb (12.0-16.0) g/dL Hct (37-47) % MCV (80-100) fL MCH (25-34) pg MCHC (32-36) g/dL RDW Std Deviation (36.4-46.3) fL RDW Coeff of Jennifer (11.5-14.5) % Plt Count (130-400) K/uL MPV (7.4-10.4) fL Sodium (136-145) mmol/L Potassium (3.5-5.1) mmol/L Chloride (98-107) mmol/L Carbon Dioxide (21-32) mmol/L Anion Gap (3-11) BUN (7-18) mg/dl Creatinine (0.6-1.2) mg/dl Est Cr Clr Drug Dosing ml/min Est GFR ( Amer) Est GFR (Non-Af Amer) BUN/Creatinine Ratio (10-20) Glucose (70-99) mg/dl POC Glucose 117 H 153 H (70-99) Calcium (8.5-10.1) mg/dl Magnesium (1.8-2.4) mg/dl Total Bilirubin (0.2-1) mg/dl Direct Bilirubin (0-0.2) mg/dl AST (15-37) U/L ALT (12-78) U/L Alkaline Phosphatase (45-117) U/L Troponin I < 0.015 (0-0.045) ng/ml Total Protein (6.4-8.2) gm/dl Albumin (3.4-5.0) gm/dl Diagnostic Findings Echocardiogram with normal EF, no wall motion abnormalities, mild MR ECG Additional Comments: ECG #1 normal sinus rhythm ECG #2 sinus tachycardia with diffuse anterolateral ST depressions and T wave inversions ECG #3 on 11/08 with normal sinus rhythm, no ischemia PG Care Time/CCT Total # of Minutes Spent Total Time Spent with Patient: Total time spent is greater than 50% in coordination of care (as documented) at patient's floor/unit and/or counseling patient:
[2018-11-08] MEDS: CIPROFLOXACIN 400 MG/200 ML BAG IV SCH (17:38)
[2018-11-08 18:02] LABS: INR 1.1 (0.9-1.1); Partial Thromboplastin Time 26.1 Seconds (21.0-31.0); Prothrombin Time 11.4 Seconds (9.0-12.0)
[2018-11-08] MEDS: INSULIN GLARGINE SOLOSTAR 100 UNITS/ML 3 ML PEN SQ SCH (20:45)
[2018-11-08] MEDS: HEPARIN SOD 5,000 UNIT/0.5 ML VIAL SQ SCH (22:00)
[2018-11-09] MEDS: SODIUM CHLORIDE 0.9% 1000ML 1,000 ML IV SCH ×3 (02:40→18:20)
--- NOTE | 2018-11-09 05:00 | Urology Progress Note ---
Date of Service November 09, 2018 Subjective 83-year-old white female who was admitted from the ER with left lower quadrant abdominal pain. She was found to have a 2.5 mm distal left stone. Since she has been in the hospital she is been pain-free she has had no nausea or vomiting since being admitted to the floor and tells me that she feels fine She had a slight bump in her temperature to 37 7 tonight so I came in to see her again she says she is not having any pain she feels okay she is alert and oriented temperature is now back down to 36.8 blood pressure stable there is no signs of sepsis She is on Cipro currently We will check lab work in the morning Results & Data Vital Signs (Past 12 Hours) Vital Signs Temp Pulse Resp BP Pulse Ox 11/09/18 04:00 36.9 C 74 17 115/72 90 11/09/18 00:00 37.7 C H 78 95 H 93/54 L 95 11/08/18 19:50 37.1 C 79 20 104/64 95
[2018-11-09] MEDS: HEPARIN SOD 5,000 UNIT/0.5 ML VIAL SQ SCH ×2 (05:14→13:16)
[2018-11-09] MEDS: LEVOTHYROXINE SODIUM 112 MCG TABLET PO SCH (06:30)
[2018-11-09 07:05] LABS: Hematocrit (blood only) 32.2 % (37-47); Hemoglobin 10.9 g/dL (12.0-16.0); Mean Corpuscular Hgb Conc 33.9 g/dL (32-36); Mean Corpuscular Volume 84.7 fL (80-100); Mean Platelet Volume 9.7 fL (7.4-10.4); Platelet Count 184 K/uL (130-400); RDW Coefficient of Variation 12.8 % (11.5-14.5); RDW Standard Deviation 39.4 fL (36.4-46.3); White Blood Count 8.63 K/uL (4.8-10.8)
[2018-11-09 07:20] LABS: BUN Creatinine Ratio 12.7 (10-20); Calcium 7.2 mg/dl (8.5-10.1); Creatinine Clr Calc Pharmacy 22.7 ml/min; Est GFR (African American) 25.3; Est GFR (Non-African American) 21.9; Potassium 4.4 mmol/L (3.5-5.1)
[2018-11-09] MEDS: INSULIN ASPART 100 UNITS/ML 3 ML PEN SC SCH ×4 (07:39→21:40)
--- NOTE | 2018-11-09 09:02 | Cardiology Progress Note ---
Date of Service November 09, 2018 Assessment & Plan (1) Elevated troponin: Patient with very mild troponin elevation of .064 that downtrended to .055 six hours later. No cardiac symptoms whatsoever, no significant cardiac history Patient was tachycardic with sinus rhythm Echo showing mild LVH with no wall motion abnormalities and mild mitral regurgitation Elevated troponin likely secondary to demand ischemia from tachycardia and LVH No concern about any acute coronary syndrome. (2) LVH (left ventricular hypertrophy): Mild, with preserved ejection fraction No concerns at this time (3) Mitral regurgitation: Mild mitral regurgitation noted on echocardiogram, patient is asymptomatic and no indication for any further treatment at this time. Subjective Ms Kelly Coe is resting in bed comfortably today. 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 She tells me her pain has completely and totally resolved since she went to the bathroom shortly after being admitted from ED. She feels she is in her usual state of health currently and has no current questions or concerns. Patient denies any chest pain, shortness of breath, positional dyspnoea, swelling, palpitations, presyncope/syncope, nausea, vomiting, abdominal or flank pain, urinary symptoms, hematuria, diarrhea, or constipation. Physical Exam Constitutional: well developed and well nourished; no acute distress, not ill appearing and no altered mental status Eyes: PERRL, conjunctivae normal, anicteric sclerae Respiratory: normal respiratory effort, lungs clear to auscultation Cardiovascular: Rate/Rhythm: regular rate and regular rhythm Heart Sounds: no click, no gallop, no murmur and no cardiac rub Vessels: normal peripheral pulses Extremities: no calf tenderness and no edema Gastrointestinal (Abdomen): normal bowel sounds, soft, nontender, no hepatosplenomegaly Skin: no rashes, warm and dry multiple hemangiomas on chest Neurologic: PERRL, EOMI, accommodation nl, no face palsy, no dysarthria Results & Data Vital Signs (Past 12 Hours) Vital Signs Temp Pulse Resp BP Pulse Ox 11/09/18 07:30 36.6 C 77 16 125/73 95 11/09/18 04:00 36.9 C 74 17 115/72 90 11/09/18 00:00 37.7 C H 78 95 H 93/54 L 95 Resident Activity Tracking Resident Involvement: Resident Care Provided Care Provided: Adult Hospital Medicine
--- NOTE | 2018-11-09 09:29 | XRay Report ---
KUB CLINICAL HISTORY: Left ureteral stone. FINDINGS: 2 AP supine abdominal radiographs are correlated with abdominal CT dated 11/07/2018. There i s a nonobstructed abdominal bowel gas pattern noting moderate colonic fecal retention. There is retai vijay excreted IV contrast within the distal left ureter. A 4 mm distal left ureteral stone is unchange d in position. No additional calcifications are identified projecting over either kidney. Numerous grider rgical clips and phleboliths are seen throughout the pelvis. The skeletal structures are osteopenic. Lumbosacral spondylosis is noted. IMPRESSION: 1. A 4 mm distal left ureteral calculus is unchanged from previous. 2. No additional renal calculi are clearly identified. 3. Residual excreted IV contrast is present within the distal left ureter. Electronically signed by: Josue Garcia M.D. 11/09/2018 9:28 AM
--- NOTE | 2018-11-09 10:35 | Hospitalist Progress Note ---
Date of Service November 09, 2018 Assessment & Plan (1) Kidney stone: She presented with left lower quadrant abdominal pain, nausea/vomiting CT showed 4 mm left ureteral calculus with mild hydronephrosis Lactic acid was 3.0 on admission, likely due to dehydration as she did not appear to be septic She did have a very mild leukocytosis which is now improving, afebrile She was treated with IV fluids, 1 dose of Flomax, and morphine 2 mg IV q4h prn She no longer has any renal colic and urology saw her- KUB this morning showed 4mm ureteral calculus unchanged from previous -urology to to take her to OR tomorrow - NPO after MN -She has acute kidney injury as below but is worsening and likely due to hypotension secondary to Flomax -Continue IV fluids -Discontinued Flomax (2) Hypotension: Possibly secondary to Flomax -Gave IV fluid bolus 11/08 and continued normal saline at 125 an hour - ANJANA secondary likely to ATN -Blood pressure normalized -She has been asymptomatic -Discontinued Flomax -Continue IV fluids (3) Elevated troponin: Troponin was negative on admission and then elevated to 0.06 and then decreased down to 0.[address] depressions and T wave inversions when she was in sinus tachycardia in the ER but did not have chest pain EKG changes resolved when the tachycardia resolved Echocardiogram with normal EF and no wall motion abnormalities, with LVH Cardiology consultation obtained-thinks that elevated troponin and EKG changes are secondary to tachycardia in the setting of LVH -Cardiology does not recommend any further cardiac testing -Continue monitoring on telemetry - most recently hypotensive at midnight (4) ANJANA (acute kidney injury): Creatinine was 1.3 on admission and is now rising throughout to 2.05 with BUN remaining fairly stable at 26, no electrolyte disturbance Likely secondary to ATN from hypotension Electrolytes otherwise stable and she is not volume overloaded, is making urine- it is not being recorded as she is voiding into the toilet as per RN -Fractional excretion of sodium 0.6% indicting pre- renal cause -Continue normal saline at 125 mL's per hour -Follow BMP in the morning -will continue her hospital stay overnight (5) UTI (urinary tract infection): E.coli grew on urine culture Mild temp over the night, WBCs on admission were 10.8, no further leukocytosis Continue Cipro started 11/08 (6) Hypomagnesemia: 1.1 on admission, was replaced and is now normal (7) Tachycardia: Brief tachycardia with heart rate 120s -130s which returned to normal with metoprolol IV. Likely secondary to hypomagnesemia and acute illness with renal colic -Now resolved (8) IPMN (intraductal papillary mucinous neoplasm): Reviewed the finding with patient - follow up outpatient Has a 2.4 cm cyst in the uncinate process of the pancreas seen on imaging (9) Cholelithiasis: Seen incidentally on CT No RUQ pain, LFTs wnl Follow as an outpatient with PCP (10) LVH (left ventricular hypertrophy): Noted on echocardiogram as above (11) Mitral regurgitation: Mild as seen on echocardiogram -Follow as an outpatient (12) DVT prophylaxis: SCDs, hold SQ heparin for intervention in the morning Subjective Ms. Coe has no complaints today. No further pain. No events on monitor over night. She feels like her normal self except that she is sleeping alot. Review of Systems Review of Systems: All systems reviewed & are unremarkable except as noted in HPI & below Physical Exam Physical Exam: General: no distress Eyes: normal inspection, PERLL Respiratory: chest non tender, clear to auscultation, normal breath sounds, no respiratory distress, no accessory muscle use Cardiac: regular rate and rhythm, no rub or gallop, no murmur, no edema, no jvd GI/: active bowel sounds, no abd pain or tenderness, soft, non distended Extremities: normal range of motion, normal strength, non tender Neuro/Psych: alert and oriented x 3, normal mood and affect Skin: normal color, dry Results & Data Vital Signs (Past 12 Hours) Vital Signs Temp Pulse Resp BP Pulse Ox 11/09/18 07:30 36.6 C 77 16 125/73 95 11/09/18 04:00 36.9 C 74 17 115/72 90 11/09/18 00:00 37.7 C H 78 95 H 93/54 L 95 PG Care Time/CCT Total # of Minutes Spent Total Time Spent with Patient: Total time spent is greater than 50% in coordination of care (as documented) at patient's floor/unit and/or counseling patient:
--- NOTE | 2018-11-09 10:51 | Urology Progress Note ---
Date of Service November 09, 2018 Assessment & Plan (1) UTI (urinary tract infection): (2) ANJANA (acute kidney injury): (3) Left ureteral stone: 83yo F with persistent L distal ureteral stone, mild hydronephrosis and E.Coli UTI. Pt remains without pain, however having urgency/frequency today. Slightly elevated temp last evening (37.7C) with response to tylenol. Unfortunately, her kidney function continues to worsen. KUB reveals persistence of Left distal ureteral stone, no movement. Pt made aware, we do not feel comfortable discharging her home given her worsening ANJANA, she had full breakfast this AM. Will make her NPO at midnight and arrange for procedure in AM. Given slowly worsening kidney function in the context of an obstructing distal ureteral stone, will proceed with OR for cystoscopy, left retrograde pyelogram, left ureteroscopy, laser litho, stone basketing and possible left ureteral stent placement tomorrow with Dr. Pollard. Risks and benefits to be reviewed with patient by Dr. Houston. OR notified. Preoperative CXR and EKG completed. Will cover with IV ciprofloxacin preoperatively per UC&S sensitivities. Please contact our service urgently if she develops fever >101F, intractable pain or vomiting as this will necessitate emergent stenting. Will continue to monitor closely with primary team. Subjective 83yo F with 4mm Distal L stone, mild hydro. Labs reviewed this AM- Creatinine continues to rise to 2.05 this AM (1.89 yesterday) She remains without pain, however is noticing increased frequency/urgency. No dysuria or hematuria. Denies fevers/chills/nausea/vomiting. UC&S final - >100,000cfu E.Coli - recieving ciprofloxacin IV Review of Systems Review of Systems: All systems reviewed & are unremarkable except as noted in HPI & below Physical Exam Physical Exam: A&Ox3 RRR abd soft, nontender no LE edema corrective eyewear intact Results & Data Vital Signs (Past 12 Hours) Vital Signs Temp Pulse Resp BP Pulse Ox 11/09/18 07:30 36.6 C 77 16 125/73 95 11/09/18 04:00 36.9 C 74 17 115/72 90 11/09/18 00:00 37.7 C H 78 95 H 93/54 L 95 Laboratory Results Laboratory Results - last 48 hr 11/07/18 11/07/18 11/07/18 14:50 15:11 15:11 WBC 10.82 H RBC 4.67 Hgb 13.5 Hct 39.2 MCV 83.9 MCH 28.9 MCHC 34.4 RDW Std Deviation 39.0 RDW Coeff of Jennifer 12.9 Plt Count 227 MPV 9.5 Immature Gran % (Auto) 0.1 Neut % (Auto) 82.5 Lymph % (Auto) 14.6 Pratt % (Auto) 2.4 Eos % (Auto) 0.2 Baso % (Auto) 0.2 Immature Gran # (Auto) 0.01 Neut # (Auto) 8.93 H Lymph # (Auto) 1.58 Pratt # (Auto) 0.26 Eos # (Auto) 0.02 Baso # (Auto) 0.02 PT INR APTT PTT Ratio Sodium 139 Potassium 4.5 Chloride 105 Carbon Dioxide 27 Anion Gap 7.0 BUN 18 Creatinine 1.38 H Est Cr Clr Drug Dosing Not Reportable Est GFR ( Amer) 40.9 Est GFR (Non-Af Amer) 35.3 BUN/Creatinine Ratio 12.8 Glucose 169 H POC Glucose Lactate Calcium 9.2 Magnesium 1.1 L Total Bilirubin 0.7 Direct Bilirubin AST 15 ALT 15 Alkaline Phosphatase 85 Troponin I < 0.015 Total Protein 7.7 Albumin 3.9 Globulin 3.8 Albumin/Globulin Ratio 1.0 Lipase 83 Urine Color Yellow Urine Appearance Clear Urine pH 5.0 Ur Specific [place] 1.026 Urine Protein 3+ H Urine Glucose (UA) Negative Urine Ketones 2+ H Urine Blood 2+ H Urine Nitrite Negative Urine Bilirubin Negative Urine Urobilinogen Negative Ur Leukocyte Esterase Negative Urine WBC (Auto) 5-10 H Urine RBC (Auto) 10-30 H U Hyaline Cast (Auto) 1-5 U Epithel Cells (Auto) >30 H Urine Bacteria (Auto) 1+ H Ur Renal Epithelial Cell 0-5 Ur Random Creatinine Ur Random Sodium 11/07/18 11/07/18 11/08/18 15:11 21:30 00:06 WBC RBC Hgb Hct MCV MCH MCHC RDW Std Deviation RDW Coeff of Jennifer Plt Count MPV Immature Gran % (Auto) Neut % (Auto) Lymph % (Auto) Pratt % (Auto) Eos % (Auto) Baso % (Auto) Immature Gran # (Auto) Neut # (Auto) Lymph # (Auto) Pratt # (Auto) Eos # (Auto) Baso # (Auto) PT INR APTT PTT Ratio Sodium Potassium Chloride Carbon Dioxide Anion Gap BUN Creatinine Est Cr Clr Drug Dosing Est GFR ( Amer) Est GFR (Non-Af Amer) BUN/Creatinine Ratio Glucose POC Glucose 153 H 117 H Lactate 3.1 H* Calcium Magnesium Total Bilirubin Direct Bilirubin AST ALT Alkaline Phosphatase Troponin I Total Protein Albumin Globulin Albumin/Globulin Ratio Lipase Urine Color Urine Appearance Urine pH Ur Specific [place] Urine Protein Urine Glucose (UA) Urine Ketones Urine Blood Urine Nitrite Urine Bilirubin Urine Urobilinogen Ur Leukocyte Esterase Urine WBC (Auto) Urine RBC (Auto) U Hyaline Cast (Auto) U Epithel Cells (Auto) Urine Bacteria (Auto) Ur Renal Epithelial Cell Ur Random Creatinine Ur Random Sodium 11/08/18 11/08/18 11/08/18 01:52 01:52 05:55 WBC 9.80 RBC 4.02 L Hgb 11.7 L Hct 34.5 L MCV 85.8 MCH 29.1 MCHC 33.9 RDW Std Deviation 40.5 RDW Coeff of Jennifer 13.0 Plt Count 204 MPV 9.2 Immature Gran % (Auto) Neut % (Auto) Lymph % (Auto) Pratt % (Auto) Eos % (Auto) Baso % (Auto) Immature Gran # (Auto) Neut # (Auto) Lymph # (Auto) Pratt # (Auto) Eos # (Auto) Baso # (Auto) PT INR APTT PTT Ratio Sodium 140 Potassium 4.3 Chloride 109 H Carbon Dioxide 28 Anion Gap 3.0 BUN 20 H Creatinine 1.53 H Est Cr Clr Drug Dosing 29.5 Est GFR ( Amer) 36.1 Est GFR (Non-Af Amer) 31.1 BUN/Creatinine Ratio 12.8 Glucose 92 POC Glucose 95 Lactate Calcium 7.9 L Magnesium 1.9 Total Bilirubin 0.6 Direct Bilirubin 0.2 AST 14 L ALT 13 Alkaline Phosphatase 69 Troponin I 0.064 H* Total Protein 6.2 L Albumin 3.0 L Globulin Albumin/Globulin Ratio Lipase Urine Color Urine Appearance Urine pH Ur Specific [place] Urine Protein Urine Glucose (UA) Urine Ketones Urine Blood Urine Nitrite Urine Bilirubin Urine Urobilinogen Ur Leukocyte Esterase Urine WBC (Auto) Urine RBC (Auto) U Hyaline Cast (Auto) U Epithel Cells (Auto) Urine Bacteria (Auto) Ur Renal Epithelial Cell Ur Random Creatinine Ur Random Sodium 06/23/19 06/23/19 06/23/19 07:52 08:10 11:23 WBC RBC Hgb Hct MCV MCH MCHC RDW Std Deviation RDW Coeff of Jennifer Plt Count MPV Immature Gran % (Auto) Neut % (Auto) Lymph % (Auto) [place]att % (Auto) Eos % (Auto) Baso % (Auto) Immature Gran # (Auto) Neut # (Auto) Lymph # (Auto) Pratt # (Auto) Eos # (Auto) Baso # (Auto) PT INR APTT PTT Ratio Sodium Potassium Chloride Carbon Dioxide Anion Gap BUN Creatinine Est Cr Clr Drug Dosing Est GFR ( Amer) Est GFR (Non-Af Amer) BUN/Creatinine Ratio Glucose POC Glucose 92 95 Lactate Calcium Magnesium Total Bilirubin Direct Bilirubin AST ALT Alkaline Phosphatase Troponin I 0.055 H* Total Protein Albumin Globulin Albumin/Globulin Ratio Lipase Urine Color Urine Appearance Urine pH Ur Specific [place] Urine Protein Urine Glucose (UA) Urine Ketones Urine Blood Urine Nitrite Urine Bilirubin Urine Urobilinogen Ur Leukocyte Esterase Urine WBC (Auto) Urine RBC (Auto) U Hyaline Cast (Auto) U Epithel Cells (Auto) Urine Bacteria (Auto) Ur Renal Epithelial Cell Ur Random Creatinine Ur Random Sodium 11/08/18 11/08/18 11/08/18 12:38 15:53 16:15 WBC RBC Hgb Hct MCV MCH MCHC RDW Std Deviation RDW Coeff of Jennifer Plt Count MPV Immature Gran % (Auto) Neut % (Auto) Lymph % (Auto) [place] % (Auto) Eos % (Auto) Baso % (Auto) Immature Gran # (Auto) Neut # (Auto) Lymph # (Auto) Pratt # (Auto) Eos # (Auto) Baso # (Auto) PT INR APTT PTT Ratio Sodium 142 140 Potassium 4.0 4.3 Chloride 109 H 108 H Carbon Dioxide 25 25 Anion Gap 8.0 7.0 BUN 22 H 22 H Creatinine 1.77 H 1.89 H Est Cr Clr Drug Dosing 25.5 23.9 Est GFR ( Amer) 30.3 27.9 Est GFR (Non-Af Amer) 26.1 24.1 BUN/Creatinine Ratio 12.3 11.9 Glucose 154 H 128 H POC Glucose 127 H Lactate Calcium 8.2 L 8.1 L Magnesium Total Bilirubin Direct Bilirubin AST ALT Alkaline Phosphatase Troponin I Total Protein Albumin Globulin Albumin/Globulin Ratio Lipase Urine Color Urine Appearance Urine pH Ur Specific [place] Urine Protein Urine Glucose (UA) Urine Ketones Urine Blood Urine Nitrite Urine Bilirubin Urine Urobilinogen Ur Leukocyte Esterase Urine WBC (Auto) Urine RBC (Auto) U Hyaline Cast (Auto) U Epithel Cells (Auto) Urine Bacteria (Auto) Ur Renal Epithelial Cell Ur Random Creatinine Ur Random Sodium 11/08/18 11/08/18 11/08/18 17:26 17:30 17:30 WBC RBC Hgb Hct MCV MCH MCHC RDW Std Deviation RDW Coeff of Jennifer Plt Count MPV Immature Gran % (Auto) Neut % (Auto) Lymph % (Auto) Pratt % (Auto) Eos % (Auto) Baso % (Auto) Immature Gran # (Auto) Neut # (Auto) Lymph # (Auto) Pratt # (Auto) Eos # (Auto) Baso # (Auto) PT 11.4 INR 1.1 APTT 26.1 PTT Ratio 1.0 Sodium Potassium Chloride Carbon Dioxide Anion Gap BUN Creatinine Est Cr Clr Drug Dosing Est GFR ( Amer) Est GFR (Non-Af Amer) BUN/Creatinine Ratio Glucose POC Glucose Lactate Calcium Magnesium Total Bilirubin Direct Bilirubin AST ALT Alkaline Phosphatase Troponin I Total Protein Albumin Globulin Albumin/Globulin Ratio Lipase Urine Color Urine Appearance Urine pH Ur Specific [place] Urine Protein Urine Glucose (UA) Urine Ketones Urine Blood Urine Nitrite Urine Bilirubin Urine Urobilinogen Ur Leukocyte Esterase Urine WBC (Auto) Urine RBC (Auto) U Hyaline Cast (Auto) U Epithel Cells (Auto) Urine Bacteria (Auto) Ur Renal Epithelial Cell Ur Random Creatinine 262.0 Ur Random Sodium 101 Cancelled 11/08/18 11/09/18 11/09/18 20:01 06:20 06:20 WBC 8.63 RBC 3.80 L Hgb 10.9 L Hct 32.2 L MCV 84.7 MCH 28.7 MCHC 33.9 RDW Std Deviation 39.4 RDW Coeff of Jennifer 12.8 Plt Count 184 MPV 9.7 Immature Gran % (Auto) Neut % (Auto) Lymph % (Auto) [place] % (Auto) Eos % (Auto) Baso % (Auto) Immature Gran # (Auto) Neut # (Auto) Lymph # (Auto) Pratt # (Auto) Eos # (Auto) Baso # (Auto) PT INR APTT PTT Ratio Sodium 136 Potassium 4.4 Chloride 107 Carbon Dioxide 23 Anion Gap 6.0 BUN 26 H Creatinine 2.05 H Est Cr Clr Drug Dosing 22.7 Est GFR ( Amer) 25.3 Est GFR (Non-Af Amer) 21.9 BUN/Creatinine Ratio 12.7 Glucose 93 POC Glucose 157 H Lactate Calcium 7.2 L Magnesium Total Bilirubin Direct Bilirubin AST ALT Alkaline Phosphatase Troponin I Total Protein Albumin Globulin Albumin/Globulin Ratio Lipase Urine Color Urine Appearance Urine pH Ur Specific [place] Urine Protein Urine Glucose (UA) Urine Ketones Urine Blood Urine Nitrite Urine Bilirubin Urine Urobilinogen Ur Leukocyte Esterase Urine WBC (Auto) Urine RBC (Auto) U Hyaline Cast (Auto) U Epithel Cells (Auto) Urine Bacteria (Auto) Ur Renal Epithelial Cell Ur Random Creatinine Ur Random Sodium 11/09/18 07:15 WBC RBC Hgb Hct MCV MCH MCHC RDW Std Deviation RDW Coeff of Jennifer Plt Count MPV Immature Gran % (Auto) Neut % (Auto) Lymph % (Auto) [place]att % (Auto) Eos % (Auto) Baso % (Auto) Immature Gran # (Auto) Neut # (Auto) Lymph # (Auto) Pratt # (Auto) Eos # (Auto) Baso # (Auto) PT INR APTT PTT Ratio Sodium Potassium Chloride Carbon Dioxide Anion Gap BUN Creatinine Est Cr Clr Drug Dosing Est GFR ( Amer) Est GFR (Non-Af Amer) BUN/Creatinine Ratio Glucose POC Glucose 105 H Lactate Calcium Magnesium Total Bilirubin Direct Bilirubin AST ALT Alkaline Phosphatase Troponin I Total Protein Albumin Globulin Albumin/Globulin Ratio Lipase Urine Color Urine Appearance Urine pH Ur Specific [place] Urine Protein Urine Glucose (UA) Urine Ketones Urine Blood Urine Nitrite Urine Bilirubin Urine Urobilinogen Ur Leukocyte Esterase Urine WBC (Auto) Urine RBC (Auto) U Hyaline Cast (Auto) U Epithel Cells (Auto) Urine Bacteria (Auto) Ur Renal Epithelial Cell Ur Random Creatinine Ur Random Sodium
--- NOTE | 2018-11-09 14:21 | Anesthesiology Consultation ---
Date of Service November 09, 2018 Assessment & Plan Chart Review Chart Review: Acceptable Risk for Surgery and Patient NOT seen in Pre Admission Testing Consults Requested none ASA [id number] Proposed Anesthesia Anesthesia Type: General History Surgery Operation Date: 11/10/18 07:30 Proposed Procedures p Cystoscopy, Left Retrograde Pyelogram, Left Ureteroscopy, Laser Lithotripsy, Left Stent Insertion - Eliot Pollard II, DO Height/Weight Height: 5 ft 6 in Weight: 84.3 kg Allergies Allergy/AdvReac Type Severity Reaction Status Date / Time Penicillins Allergy Severe SWELLING Verified 11/07/18 15:16 aspartame AdvReac Unknown Unknown Verified 11/08/18 08:56 Medications Home Medications Medication Instructions Recorded Confirmed Last Taken ergocalciferol (vitamin D2) 50,000 unit PO WK 11/07/18 11/07/18 Unknown insulin glargine [Lantus Solostar 12 unit SUBCUT HS 11/07/18 11/07/18 11/06/18 21:00 U-100 Insulin] levothyroxine 112 mcg PO QAM 11/07/18 11/07/18 11/07/18 05:30 losartan [Cozaar] 50 mg PO QAM 11/07/18 11/07/18 11/07/18 05:30 metformin [Glucophage] 1,000 mg PO BID 11/07/18 11/07/18 11/07/18 05:30 Active Medications Generic Name Dose Route Start Last Admin Trade Name Freq PRN Reason Stop Dose Admin Heparin Sodium (Porcine) 5,000 units 11/08/18 22:00 11/09/18 13:16 Heparin Sodium (Porcine) SQ 12/08/18 21:59 Not Given Q8 ROHIT Sodium Chloride 1,000 mls @ 125 mls/hr 11/07/18 20:00 11/09/18 10:55 Nss 1000ml IV 12/07/18 19:59 125 mls/hr .Q8H ROHIT Administration Ciprofloxacin 400 mg in 200 mls @ 100 mls/hr 11/08/18 17:00 11/08/18 19:40 Cipro IV 11/18/18 16:59 Infused Q24H ROHIT Infusion Protocol Insulin Aspart 0 units 11/08/18 16:30 11/09/18 11:48 Novolog Flexpen SC 12/08/18 16:29 Not Given ACHS ROHIT Protocol Insulin Glargine 6 units 11/07/18 21:00 11/08/18 20:45 Lantus Solostar Pen SQ 12/07/18 20:59 6 units HS ROHIT Administration Levothyroxine Sodium 112 mcg 11/08/18 06:30 11/09/18 06:30 Synthroid PO 12/08/18 06:29 112 mcg DAILYBB ROHIT Administration Past Medical History Medical History Anemia Cervical cancer Diabetes Hyperlipidemia Hypothyroid Obese Exercise / Class Metabolic Activity III < 4 Walking/Shop/Light housework Past Family History Family History Other Family history non-contributory Past Anesthesia History No Hx of Anesthesia Complications and No Family Hx of Anesthesia Complications Social History Smoking Status: Never smoker Hx Alcohol Use: No Hx Substance Use: No Physical Exam Vital Signs Last Vital Signs Temp 36.4 C L 11/09/18 12:22 Pulse 73 11/09/18 12:22 Resp 18 11/09/18 12:22 BP 107/65 11/09/18 12:22 Pulse Ox 91 11/09/18 12:22 Testing Laboratory Results 11/09/18 06:20 11/09/18 06:20 PT 11.4 Seconds (9.0-12.0) 11/08/18 17:26 INR 1.1 (0.9-1.1) 11/08/18 17:26 APTT 26.1 Seconds (21.0-31.0) 11/08/18 17:26 Urine Color Yellow 11/07/18 14:50 Urine Appearance Clear (Clear) 11/07/18 14:50 Urine pH 5.0 (4.5-7.5) 11/07/18 14:50 Ur Specific [place] 1.026 (1.000-1.030) 11/07/18 14:50 Urine Protein 3+ (Negative) H 11/07/18 14:50 Urine Glucose (UA) Negative (Negative) 11/07/18 14:50 Urine Ketones 2+ (Negative) H 11/07/18 14:50 Urine Nitrite Negative (Negative) 11/07/18 14:50 Ur Leukocyte Esterase Negative (Negative) 11/07/18 14:50 Urine WBC (Auto) 5-10 /hpf (0-5) H 11/07/18 14:50 Urine RBC (Auto) 10-30 /hpf (0-4) H 11/07/18 14:50 U Hyaline Cast (Auto) 1-5 /lpf (0-5) 11/07/18 14:50 U Epithel Cells (Auto) >30 /lpf (0-5) H 11/07/18 14:50 Urine Bacteria (Auto) 1+ (Negative) H 11/07/18 14:50 11/07/18 14:50 Urine Culture - Final Urine,Clean Catch Escherichia coli 11/09/18 11/09/18 11:31 07:15 POC Glucose 118 H 105 H Electrocardiogram Date: 11/07/18 Findings: + NSR @ (at 73;low voltage) Chest X-Ray Date: 11/07/18 Findings: + atelectasis (left basilar atelectasis) Echocardiogram Date: 11/08/18 EF: 60 LV Function: normal RWMA: + none Other Findings: + atrial enlargement (mild biatrial enlargement/dilation), + LVH (mild) and + diastolic dysfunction (grade 2) Valvular Disease: + MR (mild)
[2018-11-09] MEDS: CIPROFLOXACIN 400 MG/200 ML BAG IV SCH (16:12)
[2018-11-09] MEDS: INSULIN GLARGINE SOLOSTAR 100 UNITS/ML 3 ML PEN SQ SCH (21:40)
[2018-11-10] MEDS: LEVOTHYROXINE SODIUM 112 MCG TABLET PO SCH (05:46)
[2018-11-10] MEDS ORDERED: CIPROFLOXACIN 400 MG/200 ML BAG IV SCH (06:00)
[2018-11-10 06:52] LABS: Hematocrit (blood only) 34.5 % (37-47); Hemoglobin 11.8 g/dL (12.0-16.0); Mean Corpuscular Hgb Conc 34.2 g/dL (32-36); Mean Corpuscular Volume 83.9 fL (80-100); Mean Platelet Volume 9.4 fL (7.4-10.4); Platelet Count 161 K/uL (130-400); RDW Coefficient of Variation 12.8 % (11.5-14.5); RDW Standard Deviation 39.1 fL (36.4-46.3); Red Blood Count 4.11 M/uL (4.2-5.4); White Blood Count 8.55 K/uL (4.8-10.8)
[2018-11-10] MEDS ORDERED: PROPOFOL IV EMULSION 10 MG/ML 20 ML VIAL IV ONE (06:59)
[2018-11-10] MEDS ORDERED: ONDANSETRON INJ 2 MG/ML 2 ML VIAL ONE (06:59)
[2018-11-10] MEDS ORDERED: fentaNYL citrate 100 MCG/2 ML VIAL ONE (06:59)
[2018-11-10] MEDS ORDERED: LIDOCAINE HCL 2% 2 ML VIAL/AMP(20MG/ML) INFIL ONE (06:59)
[2018-11-10] MEDS ORDERED: MIDAZOLAM HCL 1 MG/ML 2ML VIAL ONE (06:59)
--- NOTE | 2018-11-10 07:02 | History & Physical Bridge Note ---
Date of Service November 10, 2018 History & Physical Bridge Note I have examined the patient, reviewed the History & Physical and in the interval since the performance of the History & Physical I have noted the following changes of clinical significance: Plan Cystoscopy with left ureteroscopy.
[2018-11-10] MEDS ORDERED: IOTHALAMATE MEGLUMINE II 17.2% 250 ML VIAL ONE (07:06)
--- NOTE | 2018-11-10 07:17 | Ultrasound Report ---
ULTRASOUND RIGHT UPPER EXTREMITY VENOUS CLINICAL HISTORY: Right upper extremity edema. COMPARISON STUDY: No priors. TECHNIQUE: Real-time, grayscale, and color Doppler sonography of the deep veins of the right upper ex tremity is performed. Compression and augmentation were utilized. FINDINGS: There is no sonographic evidence of deep venous thrombosis identified in the right upper ex tremity. The right internal jugular, axillary, and brachial veins are patent and normally compressibl e. Normal venous waveforms and augmentation are seen within the right subclavian vein. The cephalic a nd basilic veins are clear. The visualized radial and ulnar veins are patent. IMPRESSION: There is no sonographic evidence of deep venous thrombosis identified in the right upper extremity. Electronically signed by: Josue Garcia M.D. 11/10/2018 7:15 AM
[2018-11-10 07:22] LABS: BUN Creatinine Ratio 12.3 (10-20); Calcium 7.8 mg/dl (8.5-10.1); Est GFR (African American) 28.1; Est GFR (Non-African American) 24.3; Potassium 4.3 mmol/L (3.5-5.1)
[2018-11-10] MEDS ORDERED: FLUMAZENIL 0.1 MG/1 ML 10 ML VIAL IV PRN (07:28)
[2018-11-10] MEDS ORDERED: LABETALOL HCL IV 5 MG/ML 20ML IV PRN (07:28)
[2018-11-10] MEDS ORDERED: fentaNYL citrate 100 MCG/2 ML VIAL IV PRN (07:28)
[2018-11-10] MEDS ORDERED: ONDANSETRON INJ 2 MG/ML 2 ML VIAL IV PRN (07:28)
[2018-11-10] MEDS ORDERED: ePHEDrine sulfate 50 MG/ML AMP IV PRN (07:28)
[2018-11-10] MEDS ORDERED: ATROPINE SULFATE 0.1 MG/ML 10ML SYR IV PRN (07:28)
[2018-11-10] MEDS ORDERED: PROMETHAZINE HCL 12.5 MG in SODIUM CHLORIDE 0.9% 50 ML IV PRN (07:28)
[2018-11-10] MEDS ORDERED: NALOXONE HCL 0.4 MG/1 ML VIAL/CARP IV PRN (07:28)
[2018-11-10] MEDS: INSULIN ASPART 100 UNITS/ML 3 ML PEN SC SCH ×4 (07:36→21:13)
--- NOTE | 2018-11-10 08:00 | Operative Report ---
Post Operative Report Pre & Post Diagnosis Obstructing Left Ureteral stone Same Operation Date: 11/10/18 07:30 <No data on this case meets the specified criteria> Procedure Cystoscopy with left ureteroscopy and stone basket extraction and retrograde pyelogram with left stent placement (tethered) Operation Date: 11/10/18 07:30 <No data on this case meets the specified criteria> Surgeon Eliot Pollard, II, DO Public Relations Consultant None Estimated Blood Loss 1 Findings Consistent with Post-Op Diagnosis Obstructing distal stone. Specimens Left Ureteral Stone Drains 6 Fr Left Stent Anesthesia Type General Complications none Disposition Disposition: Recovery Room Indications Failed spontaneous passage of stone. Risks and benefits discussed at length. Description of Procedure Patient was consented and brought back to the operating room. Patient was placed under anesthesia in the supine position and moved to the dorsal lithotomy position. Patient was prepped and draped in the regular sterile fashion. A time out was completed. A 30degree Cystoscope was placed into the bladder and the entire bladder was examined. The UO's were identified. The left UO was cannulized with a catheter and a wire was then placed. The short rigid ureteroscope was taken into the ureter. The entire ureter and renal pelvis were examined. The stone was identified. The stone was grasped with a basket and removed and sent for analysis. The entire area was once again examined. No residual large fragments or areas of concern were noted. The scope was slowly removed with the wire left in place. Contrast was placed through the scope for a pyelogram to assist in stent placement. The entire ureter from the proximal ureter to distal was examined as the scope was slowly removed. No obstructions or other areas of concern were noted. With the wire in place, a 6 Fr Double J stent was placed. It was confirmed with fluoroscopy. With the stent in place, the bladder was emptied. The scope was removed. The patient was cleaned, aroused from anesthesia, and transferred to the pacu in stable condition having tolerated the procedure well with no complications. I was present and participated in all aspects of the procedure. The patient will be monitored in the PACU until transferred. I attest to the content of the Intraoperative Record and any orders documented therein. Any exceptions are noted below.
--- NOTE | 2018-11-10 08:41 | Anesthesiology Progress Note ---
Date of Service November 10, 2018 Anesthesia Post Procedure Vital Signs Vital Signs: Temp Pulse Pulse Pulse Resp BP BP 11/10/18 08:35 68 14 140/63 11/10/18 08:25 69 15 136/62 11/10/18 08:15 77 18 145/65 H 11/10/18 08:05 36.6 C 75 24 134/59 L 11/10/18 07:24 36.8 C 73 16 157/93 H 11/10/18 07:23 74 11/10/18 03:50 36.8 C 80 19 125/75 11/09/18 23:49 36.8 C 77 18 143/82 H 11/09/18 19:38 37.2 C 74 16 119/70 11/09/18 15:42 36.5 C 78 18 130/76 11/09/18 12:22 36.4 C L 73 18 107/65 Pulse Ox 11/10/18 08:35 93 11/10/18 08:25 93 11/10/18 08:15 94 11/10/18 08:05 92 11/10/18 07:24 93 11/10/18 07:23 11/10/18 03:50 96 11/09/18 23:49 94 11/09/18 19:38 91 11/09/18 15:42 90 11/09/18 12:22 91 Pain Intensity Left Abdomen: Pain Intensity: 0 Transfer of Care Handoff Completed per policy Notes Mental Status: alert / awake / arousable Patient Amnestic to Procedure: Yes Nausea / Vomiting: adequately controlled Pain: adequately controlled Airway Patency, RR, SpO2: stable & adequate BP & HR: stable & adequate Hydration State: stable & adequate Anesthetic Complications: no major complications apparent
--- NOTE | 2018-11-10 09:35 | Fluoroscopy Report ---
FL retrograde includes kub CLINICAL HISTORY: LEFT RETROGRADE LASER LITHOTRIPSY AND STENT INSERTION COMPARISON STUDY: CT of the abdomen and pelvis November 07, 2018. KUB November 09, 2018. FLUOROSCOPY TIME: 31 seconds. FLUOROSCOPIC IMAGES: 4. FINDINGS: These images demonstrate cannulation of the left ureter with left retrograde exam. There is mild left collecting system dilatation. Left ureteral stent was placed. IMPRESSION: Fluoroscopic images from left retrograde exam with ureteral stent insertion. Electronically signed by: Luis Ku M.D. 11/10/2018 9:34 AM
--- NOTE | 2018-11-10 10:33 | Urology Progress Note ---
Date of Service November 10, 2018 Assessment & Plan (1) UTI (urinary tract infection): (2) Left ureteral stone: 83yo F POD #0 s/p cysto, left URS/LL with tethered stent placement for persistent 4mm distal L ureteral stone, E.Coli UTI. E.Coli UTI - recommend 10-14day course total for complicated UTI. Doing well post operatively, progressing as expected. Appears very comfortable, denies pain. Because she is from out of town, and currently not established with local Urologist, we have instructed her on how to remove stent on her own. She is hesitant, she is aware she can call her PCP to see if they can remove it for her, or she can call our office to have us walk her through it. Daughter in law has hotel booked for tonight, wishes to stay. Agreeable, especially considering plan to monitor for improved kidney function. Thank you for allowing us to participate in the acute care of Ms. Coe. Will continue to monitor while inpatient. Subjective 83yo F POD #0 s/p cysto, left URS/LL with tethered stent placement. Pt still lethargic post op, but easily arousable and oriented. She states she's doing well. Denies any flank pain or hematuria. She is having some dysuria - to be expected. Able to walk to bathroom with assistance x1 without difficulty. Denies n/v/f/c. Denies chest pain or shortness of breath Review of Systems Review of Systems: All systems reviewed & are unremarkable except as noted in HPI & below Physical Exam Physical Exam: sleepy, but easily arousable. Able to maintain wakefullness. RRR - on NC post op. ABd soft, nontender no LE edema Results & Data Vital Signs (Past 12 Hours) Vital Signs Temp Pulse Pulse Pulse Pulse Resp BP 11/10/18 09:45 68 18 123/75 11/10/18 09:00 65 14 136/60 11/10/18 08:45 36.8 C 67 16 134/59 L 11/10/18 08:35 68 14 140/63 11/10/18 08:25 69 15 136/62 11/10/18 08:15 77 18 145/65 H 11/10/18 08:05 36.6 C 75 24 134/59 L 11/10/18 07:24 36.8 C 73 16 11/10/18 07:23 74 11/10/18 03:50 36.8 C 80 19 125/75 11/09/18 23:49 36.8 C 77 18 143/82 H BP Pulse Ox 11/10/18 09:45 95 11/10/18 09:00 92 11/10/18 08:45 94 11/10/18 08:35 93 11/10/18 08:25 93 11/10/18 08:15 94 11/10/18 08:05 92 11/10/18 07:24 157/93 H 93 11/10/18 07:23 11/10/18 03:50 96 11/09/18 23:49 94
--- NOTE | 2018-11-10 12:11 | Hospitalist Progress Note ---
Date of Service November 10, 2018 Assessment & Plan (1) Kidney stone: She presented with left lower quadrant abdominal pain, nausea/vomiting CT showed 4 mm left ureteral calculus with mild hydronephrosis Lactic acid was 3.0 on admission, likely due to dehydration as she did not appear to be septic She did have a very mild leukocytosis which is now improving, afebrile She was treated with IV fluids, 1 dose of Flomax, and morphine 2 mg IV q4h prn KUB 11/09 showed no change in calculus placement despite improvement in symptoms - s/p Cystoscopy with left ureteroscopy and stone basket extraction and retrograde pyelogram with left stent placement (tethered) 11/10 -She has acute kidney injury as below likely due to hypotension secondary to Flomax -Continue IV fluids -Discontinued Flomax (2) Hypotension: Possibly secondary to Flomax -Gave IV fluid bolus 11/08 and continued normal saline at 125 an hour - ANJANA secondary likely to ATN -Blood pressure normalized -She has been asymptomatic -Discontinued Flomax -Continue IV fluids (3) Elevated troponin: Troponin was negative on admission and then elevated to 0.06 and then decreased down to 0.[address] depressions and T wave inversions when she was in sinus tachycardia in the ER but did not have chest pain EKG changes resolved when the tachycardia resolved Echocardiogram with normal EF and no wall motion abnormalities, with LVH Cardiology consultation obtained-thinks that elevated troponin and EKG changes are secondary to tachycardia in the setting of LVH -Cardiology does not recommend any further cardiac testing - no further telemetry monitoring necessary at this time (4) ANJANA (acute kidney injury): Creatinine was 1.3 on admission and peaked at 2.05 with BUN remaining fairly stable at 26- Creat today 1.88 Likely secondary to ATN from hypotension Electrolytes otherwise stable and she is not volume overloaded, is making urine- it is not being recorded as she is voiding into the toilet as per RN -Fractional excretion of sodium 0.6% indicting pre- renal cause -Continue normal saline at 75 mL's per hour -Follow BMP in the morning (5) UTI (urinary tract infection): E.coli grew on urine culture WBCs on admission were 10.8, no further leukocytosis Continue Cipro started 11/08 (6) Hypomagnesemia: 1.1 on admission, replaced (7) Tachycardia: Brief tachycardia with heart rate 120s -130s on which returned to normal with metoprolol IV. Likely secondary to hypomagnesemia and acute illness with renal colic -Now resolved (8) IPMN (intraductal papillary mucinous neoplasm): Reviewed the finding with patient - follow up outpatient Has a 2.4 cm cyst in the uncinate process of the pancreas seen on imaging (9) Cholelithiasis: Seen incidentally on CT No RUQ pain, LFTs wnl Follow as an outpatient with PCP (10) LVH (left ventricular hypertrophy): Noted on echocardiogram as above (11) Mitral regurgitation: Mild as seen on echocardiogram -Follow as an outpatient (12) DVT prophylaxis: SCDs, hold SQ heparin for intervention Dispo: will likely discharge tomorrow to go home to [place] Subjective Ms. Coe is post cystoscopy. She is still a bit drowsy but has no complaints Review of Systems Review of Systems: All systems reviewed & are unremarkable except as noted in HPI & below Physical Exam Physical Exam: General: no distress Eyes: normal inspection, PERLL Respiratory: chest non tender, clear to auscultation, normal breath sounds, no respiratory distress, no accessory muscle use Cardiac: regular rate and rhythm, no rub or gallop, no murmur, no edema, no jvd GI/: active bowel sounds, no abd pain or tenderness, soft, non distended Extremities: normal range of motion, normal strength, non tender Neuro/Psych: alert and oriented x 3, normal mood and affect Skin: normal color, dry Results & Data Vital Signs (Past 12 Hours) Vital Signs Temp Pulse Pulse Pulse Pulse Resp BP 11/10/18 10:42 76 18 146/79 H 11/10/18 09:45 68 18 123/75 11/10/18 09:15 36.8 C 71 16 130/77 11/10/18 09:00 65 14 136/60 11/10/18 08:45 36.8 C 67 16 134/59 L 11/10/18 08:35 68 14 140/63 11/10/18 08:25 69 15 136/62 11/10/18 08:15 77 18 145/65 H 11/10/18 08:05 36.6 C 75 24 134/59 L 11/10/18 07:24 36.8 C 73 16 11/10/18 07:23 74 11/10/18 03:50 36.8 C 80 19 125/75 BP Pulse Ox 11/10/18 10:42 96 11/10/18 09:45 95 11/10/18 09:15 94 11/10/18 09:00 92 11/10/18 08:45 94 11/10/18 08:35 93 11/10/18 08:25 93 11/10/18 08:15 94 11/10/18 08:05 92 11/10/18 07:24 157/93 H 93 11/10/18 07:23 11/10/18 03:50 96 PG Care Time/CCT Total # of Minutes Spent Total Time Spent with Patient: Total time spent is greater than 50% in coordination of care (as documented) at patient's floor/unit and/or counseling patient:
[2018-11-10] MEDS: POLYETHYLENE (MIRALAX) 17 GM PACK PO SCH (13:17)
[2018-11-10] MEDS: SODIUM CHLORIDE 0.9% 1000ML 1,000 ML IV SCH ×2 (13:18)
[2018-11-10] MEDS: HEPARIN SOD 5,000 UNIT/0.5 ML VIAL SQ SCH ×2 (13:19→21:11)
--- NOTE | 2018-11-10 15:07 | XRay Report ---
XR chest 1V portable CLINICAL HISTORY: sob, hypoxia COMPARISON STUDY: Chest radiograph November 07, 2018. FINDINGS: Lung volumes are within normal limits. Small bilateral pleural effusions have developed. Th ere are bibasilar opacities. There is interstitial thickening with mild pulmonary edema. There is no pneumothorax. IMPRESSION: 1. Interval development of small bilateral pleural effusions with bibasilar opacities that may reflec t pneumonia or atelectasis. 2. Interstitial thickening consistent with mild pulmonary edema. Electronically signed by: Luis Ku M.D. 11/10/2018 3:05 PM
[2018-11-10] MEDS ORDERED: FUROSEMIDE 20 MG in SYRINGE 0 ML IV ONE (17:00)
[2018-11-10] MEDS: CIPROFLOXACIN 400 MG/200 ML BAG IV SCH (17:33)
[2018-11-10] MEDS: INSULIN GLARGINE SOLOSTAR 100 UNITS/ML 3 ML PEN SQ SCH (21:13)
[2018-11-11] MEDS: LEVOTHYROXINE SODIUM 112 MCG TABLET PO SCH (06:12)
[2018-11-11] MEDS: HEPARIN SOD 5,000 UNIT/0.5 ML VIAL SQ SCH ×3 (06:12→21:30)
[2018-11-11 07:25] LABS: Hematocrit (blood only) 34.2 % (37-47); Hemoglobin 11.8 g/dL (12.0-16.0); Mean Corpuscular Hgb Conc 34.5 g/dL (32-36); Mean Platelet Volume 9.7 fL (7.4-10.4); Platelet Count 193 K/uL (130-400); RDW Coefficient of Variation 12.8 % (11.5-14.5); RDW Standard Deviation 38.9 fL (36.4-46.3); Red Blood Count 4.07 M/uL (4.2-5.4)
[2018-11-11 08:00] LABS: BUN Creatinine Ratio 12.5 (10-20); Calcium 8.6 mg/dl (8.5-10.1); Creatinine Clr Calc Pharmacy 41.2 ml/min; Est GFR (African American) 51.5; Est GFR (Non-African American) 44.4; Potassium 3.8 mmol/L (3.5-5.1)
--- NOTE | 2018-11-11 08:26 | Anesthesiology Progress Note ---
Date of Service November 11, 2018 Anesthesia Post Procedure Vital Signs Vital Signs: Temp Pulse Pulse Resp BP Pulse Ox 11/11/18 07:05 36.8 C 74 16 150/81 H 98 11/11/18 03:45 37.0 C 84 16 159/82 H 95 11/10/18 23:30 36.8 C 84 16 153/72 H 95 11/10/18 19:16 36.7 C 87 17 158/74 H 92 11/10/18 15:22 36.9 C 72 16 142/83 H 95 11/10/18 12:57 76 18 142/82 H 92 11/10/18 12:24 68 16 140/82 94 11/10/18 10:42 76 18 146/79 H 96 11/10/18 09:45 68 18 123/75 95 11/10/18 09:15 36.8 C 71 16 130/77 94 11/10/18 09:00 65 14 136/60 92 11/10/18 08:45 36.8 C 67 16 134/59 L 94 11/10/18 08:35 68 14 140/63 93 Pain Intensity Left Abdomen: Pain Intensity: 0 Notes Mental Status: alert / awake / arousable and participated in evaluation Patient Amnestic to Procedure: Yes Nausea / Vomiting: adequately controlled Pain: adequately controlled Airway Patency, RR, SpO2: stable & adequate BP & HR: stable & adequate Hydration State: stable & adequate Anesthetic Complications: no major complications apparent
[2018-11-11] MEDS: POLYETHYLENE (MIRALAX) 17 GM PACK PO SCH (08:39)
[2018-11-11] MEDS: INSULIN ASPART 100 UNITS/ML 3 ML PEN SC SCH ×4 (08:41→21:30)
[2018-11-11] MEDS ORDERED: FUROSEMIDE 20 MG in SYRINGE 0 ML IV ONE ×2 (09:15→17:00)
--- NOTE | 2018-11-11 09:28 | Urology Progress Note ---
Date of Service November 11, 2018 Assessment & Plan (1) Left ureteral stone: 83yo F POD #1 s/p cysto, left URS/LL with tethered stent placement for persistent 4mm distal L ureteral stone, E.Coli UTI. Breathing appears to be improved, tolerating PO diet well. Tethered stent accidently removed last evening approx 10PM, patient tolerated well. E.Coli UTI - recommend 10-14day course total for complicated UTI. Stable from discharge from standpoint. Encouraged to establish with local Urologist in [place] area, she is agreeable. Thank you for allowing us to participate in the acute care of Ms. Coe. Subjective 83yo F POD #1 s/p cysto, left URS/LL with tethered stent placement. Pt doing okay this AM, mostly frustrated with being hospitalized but is understanding of clinical course. Unfortunately, tethered stent was accidently removed during bathing last evening approx 10PM, education courses sales representative physician was made aware. Pt denied any pain with displacement. Kidney function has normalized this AM She did experience episode of SOB last evening, supplemental O2 and lasix provided with improvement. Pt states she feels less swollen. Denies n/v/f/c. Denies any LUTS, no hematuria. Denies chest pain or shortness of breath this AM. Off supplemental O2. Review of Systems Review of Systems: All systems reviewed & are unremarkable except as noted in HPI & below Physical Exam Physical Exam: A&Ox3 RRR abd soft, nontender Results & Data Vital Signs (Past 12 Hours) Vital Signs Temp Pulse Resp BP Pulse Ox 11/11/18 08:46 94 11/11/18 07:05 36.8 C 74 16 150/81 H 98 11/11/18 03:45 37.0 C 84 16 159/82 H 95 11/10/18 23:30 36.8 C 84 16 153/72 H 95
--- NOTE | 2018-11-11 13:39 | Hospitalist Progress Note ---
Date of Service November 11, 2018 Assessment & Plan (1) Kidney stone: She presented with left lower quadrant abdominal pain, nausea/vomiting CT showed 4 mm left ureteral calculus with mild hydronephrosis Lactic acid was 3.0 on admission, likely due to dehydration as she did not appear to be septic She did have a very mild leukocytosis which is now improving, afebrile She was treated with IV fluids, 1 dose of Flomax, and morphine 2 mg IV q4h prn KUB 11/09 showed no change in calculus placement despite improvement in symptoms - s/p Cystoscopy with left ureteroscopy and stone basket extraction and retrograde pyelogram with left stent placement (tethered) 11/10 -She had acute kidney injury as below likely due to hypotension secondary to Flomax -IVF discontinued (2) Hypotension: Possibly secondary to Flomax -Gave IV fluid bolus 11/08 and continued normal saline until 11/10 - ANJANA secondary likely to ATN -Blood pressure normalized -She has been asymptomatic -Discontinued Flomax -Continue IV fluids (3) ANJANA (acute kidney injury): Creatinine was 1.3 on admission and peaked at 2.05 with BUN remaining fairly stable at 26- ANJANA now resolved Likely secondary to ATN from hypotension -Fractional excretion of sodium 0.6% indicting pre- renal cause -provided IVF, now discontinued -Follow BMP in the morning (4) UTI (urinary tract infection): E.coli grew on urine culture WBCs on admission were 10.8, no further leukocytosis Continue Cipro started 11/08 - will need 10-14 days of treatment per urology (5) Elevated troponin: Troponin was negative on admission and then elevated to 0.06 and then decreased down to 0.[address] depressions and T wave inversions when she was in sinus tachycardia in the ER but did not have chest pain EKG changes resolved when the tachycardia resolved Echocardiogram with normal EF and no wall motion abnormalities, with LVH Cardiology consultation obtained-thinks that elevated troponin and EKG changes are secondary to tachycardia in the setting of LVH -Cardiology does not recommend any further cardiac testing - no further telemetry monitoring necessary at this time (6) Tachycardia: Brief tachycardia with heart rate 120s -130s on which returned to normal with metoprolol IV. Likely secondary to hypomagnesemia and acute illness with renal colic -Now resolved (7) Hypoxia: Unable to wean off of oxygen after returned from OR yesterday. CXR 11/10: 1. Interval development of small bilateral pleural effusions with bibasilar opacities that may reflect pneumonia or atelectasis. 2. Interstitial thickening consistent with mild pulmonary edema. I think it is less likely a pneumonia - no cough, no systemic symptoms, afebrile, no leukocytosis. More likely fluid overload with atelectasis. Patient had normal EF on echo. She is responding well to diuresis. Will give one more dose of 20 mg IV lasix tonight. 2 step ordered. May have to try to arrange oxygen to transport home. Case management is looking into a company that might be able to provide it. (8) Hypomagnesemia: 1.1 on admission, replaced (9) IPMN (intraductal papillary mucinous neoplasm): Reviewed the finding with patient - follow up outpatient Has a 2.4 cm cyst in the uncinate process of the pancreas seen on imaging (10) Cholelithiasis: Seen incidentally on CT No RUQ pain, LFTs wnl Follow as an outpatient with PCP (11) LVH (left ventricular hypertrophy): Noted on echocardiogram as above (12) Mitral regurgitation: Mild as seen on echocardiogram -Follow as an outpatient (13) DVT prophylaxis: SCDs, ambulatory Dispo: will likely discharge tomorrow to go home to [facility] Ms. Coe is feeling well. She has no systemic symptoms and does not feel short of breath or have a cough. Unfortunately she continues to have low oxygen saturations - 91% at rest, as low as 84% with exertion. She is asymptomatic during these drops. Her family is very concerned about staying longer in the hospital as tomorrow is the latest they can stay without having to manage some complicated travel logistics to get Ms. Coe home. Review of Systems Review of Systems: All systems reviewed & are unremarkable except as noted in HPI & below Physical Exam Physical Exam: General: no distress Eyes: normal inspection, PERLL Respiratory: chest non tender, clear to auscultation, normal breath sounds, no respiratory distress, no accessory muscle use Cardiac: regular rate and rhythm, no rub or gallop, no murmur, no edema, no jvd GI/: active bowel sounds, no abd pain or tenderness, soft, non distended Extremities: normal range of motion, normal strength, non tender Neuro/Psych: alert and oriented x 3, normal mood and affect Skin: normal color, dry Results & Data Vital Signs (Past 12 Hours) Vital Signs Temp Pulse Resp BP Pulse Ox 11/11/18 08:46 94 11/11/18 07:05 36.8 C 74 16 150/81 H 98 11/11/18 03:45 37.0 C 84 16 159/82 H 95 PG Care Time/CCT Total # of Minutes Spent Total Time Spent with Patient: Total time spent is greater than 50% in coordination of care (as documented) at patient's floor/unit and/or counseling patient:
[2018-11-11] MEDS: CIPROFLOXACIN 500 MG TAB PO SCH ×2 (14:15→21:31)
[2018-11-11] MEDS: INSULIN GLARGINE SOLOSTAR 100 UNITS/ML 3 ML PEN SQ SCH (21:28)
[2018-11-12] MEDS: LEVOTHYROXINE SODIUM 112 MCG TABLET PO SCH (06:25)
[2018-11-12] MEDS: HEPARIN SOD 5,000 UNIT/0.5 ML VIAL SQ SCH (06:25)
[2018-11-12 07:49] LABS: BUN Creatinine Ratio 12.6 (10-20); Calcium 8.7 mg/dl (8.5-10.1); Creatinine Clr Calc Pharmacy 39.8 ml/min; Est GFR (African American) 49.4; Est GFR (Non-African American) 42.6; Potassium 3.9 mmol/L (3.5-5.1)
[2018-11-12] MEDS: INSULIN ASPART 100 UNITS/ML 3 ML PEN SC SCH (08:50)
[2018-11-12] MEDS: CIPROFLOXACIN 500 MG TAB PO SCH (08:52)
[2018-11-12] MEDS: POLYETHYLENE (MIRALAX) 17 GM PACK PO SCH (08:52)
[2018-11-12] MEDS ORDERED: ERGOCALCIFEROL 50,000 UNITS CAP PO SCH (09:00)
[2018-11-12] MEDS ORDERED: CIPROFLOXACIN 500MG HOME PACK PO ONE (10:08)
--- NOTE | 2018-11-12 10:23 | Discharge Summary ---
Date of Service November 12, 2018 Admission HPI Per Admitting Provider Ms. Coe is visiting from [place] to bring her grandson to a [facility]. She became nauseas with vomiting around 0830 this morning. She also had pain in her left lower quadrant. She denies any diarrhea or dysuria. She also developed SVT briefly in the ED for which she was given IV metoprolol and has not experienced since. She has not had any chest pain or other cardiac symptoms. 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 hx: diabetes Principal Diagnosis Kidney stone Discharge Exam Constitutional WD/WN, vitals as above Respiratory normal respiratory effort, lungs clear to auscultation Cardiovascular RRR, no murmur, no edema Gastrointestinal (Abdomen) Inspection/Auscultation: abdomen normal to inspection and normal bowel sounds; abdomen not distended Percussion/Palpation: abdomen nontender Musculoskeletal no cyanosis or clubbing, extremities motor strength 5/5 Skin no rashes, warm and dry Neurologic moves all extremities and awake Psychiatric A+Ox3, euthymic affect Discharge Data Allergies Allergy/AdvReac Type Severity Reaction Status Date / Time Penicillins Allergy Severe SWELLING Verified 11/07/18 15:16 aspartame AdvReac Unknown Unknown Verified 11/08/18 08:56 Consultations 11/07/18 18:08 ED Decision to Admit Stat 11/07/18 19:58 Consult Urology Routine 11/08/18 08:43 Consult Cardiology Routine Procedures Performed Operation Date: 11/10/18 07:30 Actual Procedures p Cystoscopy, Left Retrograde Pyelogram, Left Ureteroscopy, Left Ureteral Stent Insertion, basket stone extraction(Left) - Eliot Pollard II, DO Ordered Studies 11/07/18 14:50 CT abd pelvis IV con only Stat 11/10/18 01:41 US venous doppler UE RT Urgent 11/10/18 07:30 FL retrograde includes kub Routine Hospital Course (1) Kidney stone: She presented with left lower quadrant abdominal pain, nausea/vomiting CT showed 4 mm left ureteral calculus with mild hydronephrosis Lactic acid was 3.0 on admission, likely due to dehydration as she did not appear to be septic She did have a very mild leukocytosis which resolved, afebrile She was treated with IV fluids, 1 dose of Flomax, and morphine 2 mg IV q4h prn KUB 11/09 showed no change in calculus placement despite improvement in symptoms - s/p Cystoscopy with left ureteroscopy and stone basket extraction and retrograde pyelogram with left stent placement (tethered) 11/10 -She had acute kidney injury as below likely due to hypotension secondary to Fl omax -IVF discontinued (2) Hypotension: Possibly secondary to Flomax -Gave IV fluid bolus 11/08 and continued normal saline until 11/10 - ANJANA secondary likely to ATN -Blood pressure normalized -She has been asymptomatic -Discontinued Flomax -Continue IV fluids (3) ANJANA (acute kidney injury): Creatinine was 1.3 on admission and peaked at 2.05 with BUN remaining fairly stable at 26- ANJANA now resolved Likely secondary to ATN from hypotension -Fractional excretion of sodium 0.6% indicting pre- renal cause -provided IVF, now discontinued (4) UTI (urinary tract infection): E.coli grew on urine culture WBCs on admission were 10.8, no further leukocytosis Continue Cipro started 11/08 - will need 10-14 days of treatment per urology (5) Elevated troponin: Troponin was negative on admission and then elevated to 0.06 and then decreased down to 0.[address] depressions and T wave inversions when she was in sinus tachycardia in the ER but did not have chest pain EKG changes resolved when the tachycardia resolved Echocardiogram with normal EF and no wall motion abnormalities, with LVH Cardiology consultation obtained-thinks that elevated troponin and EKG changes are secondary to tachycardia in the setting of LVH -Cardiology does not recommend any further cardiac testing - no further telemetry monitoring necessary at this time (6) Tachycardia: Brief tachycardia on admission with heart rate 120s -130s on which returned to normal with metoprolol IV. Likely secondary to hypomagnesemia and acute illness with renal colic -Now resolved (7) Hypoxia: Unable to wean off of oxygen after returned from OR. CXR 11/10: 1. Interval development of small bilateral pleural effusions with bibasilar opacities that may reflect pneumonia or atelectasis. 2. Interstitial thickening consistent with mild pulmonary edema. I think it is less likely a pneumonia - no cough, no systemic symptoms, afebrile, no leukocytosis. More likely fluid overload with atelectasis. Patient had normal EF on echo. She is responding well to diuresis. Unfortunately she was voiding in the toilet without measurement so her Is&Os are not accurate but she reports quite a bit of urinary output. 2 step ordered which did qualify her for oxygen however coverage for the oxygen was denied with the initial company we looked into due to lack of established chronic pulmonary illness. I ambulated with the patient up and down the length of the hallway this morning. She tolerated well, no sob, no labored breathing, able to talk while ambulating. Pulse ox ranged 88-91% during ambulation and she was 91-93% at rest. I discussed with her that this was a borderline result for ambulation and that if she really preferred not take home oxygen I would discharge her without with the understanding that she is responsible for reporting to an ED if she develops any symptoms such as sob or chest pain to which she agreed. She was to a smoker and it is possible she may have an underlying pulmonary issue such as COPD and has been living with this saturation for a while as she is not having symptoms and appears very comfortable during exerti on. She has a doctor appointment tomorrow with her pcp (8) Hypomagnesemia: 1.1 on admission, replaced (9) IPMN (intraductal papillary mucinous neoplasm): Reviewed the finding with patient - follow up outpatient Has a 2.4 cm cyst in the uncinate process of the pancreas seen on imaging (10) Cholelithiasis: Seen incidentally on CT No RUQ pain, LFTs wnl Follow as an outpatient with PCP (11) LVH (left ventricular hypertrophy): Noted on echocardiogram as above (12) Mitral regurgitation: Mild as seen on echocardiogram -Follow as an outpatient (13) DVT prophylaxis: SCDs, ambulatory Total Time Total Time Spent Total Time Spent (In Minutes): >30 minutes Discharge Plan Discharge Items Patient Disposition: Home - Self-Care Reason For Visit: KIDNEY STONE Discharge Diagnosis: Kidney stone Discharge Goals: Decrease discomfort and Therapeutic intervention Activity: Resume your previous activity Activity Comment: gradually as tolerated Non-emergency contact: Primary Care Provider Call non-emergency contact if: you have any medication questions, your symptoms worsen and you have a fever Follow-up/Referrals: PCP,NO [Primary Care Provider] - Diet: Carb Consistent or DM2 Addtl Provider Instructions: Please keep your appointment with your primary care provider tomorrow. Take it easy for the next few days but continue to walk as you can tolerate and use your incentive spirometer. As we discussed, I do not think your chest xray results represent a pneumonia but if you were to develop aches, chills, fever, cough or chest pain you should call your doctor right away. If you feel short of breath you should report to an Emergency Department. Prescriptions: New ciprofloxacin HCl 500 mg Tablet 500 mg PO BID Qty: 14 RF: 0 Continued losartan [Cozaar] 50 mg tablet 50 mg PO QAM RF: 0 metformin [Glucophage] 1,000 mg tablet 1,000 mg PO BID RF: 0 ergocalciferol (vitamin D2) 50,000 unit capsule 50,000 unit PO WK RF: 0 levothyroxine 112 mcg tablet 112 mcg PO QAM RF: 0 Lantus Solostar U-100 Insulin 100 unit/mL (3 mL) insulin pen 12 unit subcut HS RF: 0 Stand-Alone Forms: My [facility]/Other Patient Handouts: Safety Oxygen Use, Oxygen Home Use, Kidney Stones Risk, Kidney Stones, Oxygen Travel Dc, Oxygen Home Dc Discharge Orders: Discharge Order (Routine); Ordered 11/12/18 Ordered By: Janey Aguillon Admission Data Admit Date/Time: 11/07/18 18:40 Attending Provider: Siva Tee Admit Provider: Anderson Pak Primary Care Provider: PCP,NO Other Providers: Skylar Stout ; Anderson Pak ; Gerson Anaya ; Kings Parikh Service: Medical Other Interventions: Discharge Summary Assessment (RN) Last Done: 11/12/18 10:47
[2018-11-17 08:35] LABS: Component 2 DNR
== END 2018-11-12 13:36 | disposition home or self-care (01) | DRG 660 ==
LOC: ED 14:37 → SUATTDRO 18:40 → 2S 18:40 → 3W 11-10 09:21
DX: R09.02 Hypoxemia; E83.42 Hypomagnesemia; K86.2 Cyst of pancreas; Z79.84 Long term (current) use of oral hypoglycemic drugs; Z79.4 Long term (current) use of insulin; B96.20 Unspecified Escherichia coli [E. coli] as the cause of diseases classified elsewhere; E86.0 Dehydration; E11.9 Type 2 diabetes mellitus without complications; N17.0 Acute kidney failure with tubular necrosis; N13.2 Hydronephrosis with renal and ureteral calculous obstruction; Z83.3 Family history of diabetes mellitus; N39.0 Urinary tract infection, site not specified; I34.0 Nonrheumatic mitral (valve) insufficiency; Z88.0 Allergy status to penicillin; Z88.8 Allergy status to other drugs, medicaments and biological substances; K80.20 Calculus of gallbladder without cholecystitis without obstruction; T44.6X5A Adverse effect of alpha-adrenoreceptor antagonists, initial encounter; I95.2 Hypotension due to drugs; R00.0 Tachycardia, unspecified; Z85.41 Personal history of malignant neoplasm of cervix uteri; Y92.009 Unspecified place in unspecified non-institutional (private) residence as the place of occurrence of the external cause